=== PATIENT | male | born 1995 | race Two or more races ===

== ENCOUNTER 2017-11-20 02:47 | Inpatient (IN) | payer OTHER ==
[2017-11-20] MEDS ORDERED: SODIUM CHLORIDE 0.9% 1,000 ML IV ONE ×3 (02:58→07:33)
[2017-11-20] MEDS ORDERED: ONDANSETRON 4 MG/2 ML VIAL IVP STA ×2 (02:58→06:21)
[2017-11-20 03:16] LABS: BASOPHILS # (AUTO) 0.1 10^3/uL (0.0-0.1); BASOPHILS % (AUTO) 0.9 %; EOSINOPHILS % (AUTO) 0.2 %; LYMPHOCYTES # (AUTO) 1.7 10^3/uL (1.5-3.5); LYMPHOCYTES % (AUTO) 11.1 %; MEAN CORPUSCULAR HEMOGLOBIN 28.6 pg (27.0-31.0); MEAN CORPUSCULAR HGB CONC 32.2 g/dL (32.0-36.0); MEAN PLATELET VOLUME 7.9 fL (7.4-11.4); MONOCYTES % (AUTO) 6.3 %; NEUTROPHILS # (AUTO) 12.7 10^3/uL (1.5-6.6); NEUTROPHILS % (AUTO) 81.5 %; PLT - PLATELET COUNT 368 10^3/uL (130-450); RED CELL DISTRIBUTION WIDTH 19.4 % (12.0-15.0); WHITE BLOOD COUNT 15.6 x10^3/uL (4.8-10.8)
[2017-11-20 03:53] LABS: ALBUMIN 2.4 g/dL (3.2-5.5); ALBUMIN/GLOBULIN RATIO 0.7 (1.0-2.2); BILIRUBIN,TOTAL 1.3 mg/dL (0.2-1.0); CREATININE 0.7 mg/dL (0.6-1.2); TOTAL PROTEIN 5.9 g/dL (6.7-8.2)
--- NOTE | 2017-11-20 04:02 | ED Physician Documentation ---
PD HPI ABD PAIN - Stated complaint Stated Complaint: UPPER ABDOMINAL PAIN - Chief complaint Chief Complaint: Abd Pain - History obtained from History obtained from: Patient - History of Present Illness Timing - onset: Today Timing - details: Gradual onset, Still present Quality: Cramping, Aching, Sharp Location: Epigastric Improved by: Eating Associated symptoms: Nausea, Vomiting. No: Diarrhea, Hematochezia Similar symptoms before: Work up / diagnostics Recently seen: Clinic - Additional information Additional information: Patient is a 22 year old male with a recent diagnosis of crohn's disease who is presenting to the emergency department for abdominal pain. patient states that he recently has been on a course of prednisone and his crohn's symptoms had been improving. Patient states that yesterday he had some vomiting and epigastric pain. Review of Systems Ten Systems: 10 systems reviewed and negative Constitutional: denies: Fever, Chills GI: reports: Abdominal Pain, Nausea, Vomiting. denies: Constipation, Diarrhea : denies: Dysuria, Frequency PD PAST MEDICAL HISTORY - Past Medical History Past Medical History: Yes Cardiovascular: None Respiratory: None Neuro: None Endocrine/Autoimmune: None GI: Crohn's disease : None HEENT: None Psych: None Musculoskeletal: None Derm: None - Past Surgical History Past Surgical History: Yes General: Appendectomy - Present Medications Home Medications: Ambulatory Orders Medication Instructions Recorded Confirmed predniSONE [Prednisone] 10 mg PO DAILY 10/25/17 10/25/17 - Allergies Allergies/Adverse Reactions: Allergies Allergy/AdvReac Type Severity Reaction Status Date / Time No Known Drug Allergies Allergy Verified 11/20/17 02:54 - Social History Does the pt smoke?: No Smoking Status: Never smoker Does the pt drink ETOH?: Yes Does the pt have substance abuse?: No - Immunizations Immunizations are current?: Yes - POLST Patient has POLST: No PD ED PE NORMAL - Vitals Vital signs reviewed: Yes - General General: Alert and oriented X 3 - HEENT HEENT: Atraumatic - Neck Neck: Supple, no meningeal sign - Cardiac Cardiac: RRR, No murmur - Respiratory Respiratory: No respiratory distress, Clear bilaterally - Abdomen Abdomen: Soft - Derm Derm: Normal color, Warm and dry - Extremities Extremities: No deformity - Neuro Neuro: Alert and oriented X 3, No motor deficit, Normal speech Eye Opening: Spontaneous Motor: Obeys Commands Verbal: Oriented GCS Score: 15 - Psych Psych: Normal mood PD ED PE EXPANDED - General General: Alert - Abdomen Abdomen: Tender to palpation, Epigastric. No: Rebound, Guarding Results - Vitals Vitals: Vital Signs - 24 hr 11/20/17 11/20/17 11/20/17 02:51 04:30 06:36 Temperature 36.7 C Heart Rate 91 85 80 Respiratory 18 18 18 Rate Blood Pressure 138/98 H 136/91 H 138/100 H O2 Saturation 97 97 94 Oxygen O2 Source Room air - Labs Labs: Laboratory Tests 11/20/17 11/20/17 03:10 03:20 WBC 15.6 H RBC 4.20 L Hgb 12.0 L Hct 37.4 L MCV 89.0 MCH 28.6 MCHC 32.2 RDW 19.4 H Plt Count 368 MPV 7.9 Neut # 12.7 H Lymph # 1.7 [place] # 1.0 Eos # 0.0 Baso # 0.1 Absolute Nucleated RBC 0.00 Nucleated RBC % 0.0 Sodium 138 Potassium 4.5 Chloride 105 Carbon Dioxide 28 Anion Gap 5.0 L BUN 8 Creatinine 0.7 Estimated GFR (MDRD) 142 Glucose 119 H Calcium 8.0 L Total Bilirubin 1.3 H AST 21 ALT 17 Alkaline Phosphatase 122 H Total Protein 5.9 L Albumin 2.4 L Globulin 3.5 Albumin/Globulin Ratio 0.7 L Lipase 760 H - Rads (name of study) ct abd pelvis Radiology: Final report received (moderate to severe pancreatitis) PD MEDICAL DECISION MAKING - ED course Complexity details: reviewed old records, reviewed results, re-evaluated patient , considered differential, d/w patient ED course: Patient was seen and examined at bedside. IV access was gained and labs were drawn. patient was treated with a fluid bolus, and zofran. patient was treated with pepcid, maalox and viscous lidocaine with good relief. Patient's labs revealed a lipase of 760. CT was ordered as patient was not an alcoholic and had no history of pancreatitis. When patient returned from imaging he was started on another liter of fluid, additional zofran and fentanyl for pain. patient's findings were discussed with Dr Mayer who accepted the patient for admission. Departure - Departure Disposition: 66 [facility] DC/Xfer Clinical Impression: Pancreatitis Condition: Stable
[2017-11-20] MEDS ORDERED: IOPAMIDOL-300 100 ML VIAL ONE (04:23)
[2017-11-20] MEDS ORDERED: IOPAMIDOL-300 100 ML VIAL IVP ONE (04:47)
--- NOTE | 2017-11-20 05:05 | CT Preliminary Report ---
Exam: CT ABDOMEN/PELVIS W/ IMPRESSION: 1. Moderate to severe pancreatitis without aimna necrosis or other complication. 2. Fatty liver. 3. Patent common bile duct stent. [facility] SITE ID: [id number]
--- NOTE | 2017-11-20 05:09 | CT Report ---
EXAM: CT ABDOMEN AND PELVIS EXAM DATE: 11/20/2017 04:48 AM. CLINICAL HISTORY: Abdominal pain, elevated lipase. COMPARISONS: None. TECHNIQUE: Routine helical CT imaging was performed through the abdomen and pelvis. IV contrast: Yes. Enteric contrast: No. Reconstructions: Coronal and sagittal. In accordance with CT protocol optimization, one or more of the following dose reduction techniques w ere utilized for this exam: automated exposure control, adjustment of mA and/or KV based on patient s ize, or use of iterative reconstructive technique. FINDINGS: Lung Bases: Unremarkable. Liver: Fatty. No suspicious masses. Gallbladder/Bile Ducts: Common bile duct stent in place with pneumobilia, consistent with stent paten cy. Spleen: Unremarkable. Pancreas: Moderate to severe surrounding inflammatory changes without amina necrosis or organized col lection. No vascular thrombosis or pseudoaneurysm seen. Adrenal Glands: Unremarkable. Kidneys: Unremarkable. No suspicious masses or hydronephrosis. Peritoneal Cavity/Bowel: No bowel obstruction or definite inflammatory process. Mild free fluid is fe lt to be related to pancreatitis. Patient appears to be status post appendectomy. No bowel obstructio n. Pelvic Organs: Bladder and prostate appear unremarkable. Vasculature: No aneurysms or other significant abnormality. Bones: No significant abnormality. Other: None. IMPRESSION: 1. Moderate to severe pancreatitis without amina necrosis or other complication. 2. Fatty liver. 3. Patent common bile duct stent. [facility] Referring Provider Line: [phone] SITE ID: [id number]
[2017-11-20] MEDS ORDERED: fentaNYL 100 MCG/2 ML VIAL IVP STA (06:30)
[2017-11-20] MEDS ORDERED: SODIUM CHLORIDE FLUSH 0.9% 10 ML SYRINGE IVP PRN (07:24)
[2017-11-20] MEDS ORDERED: PROCHLORPERAZINE 10 MG/2 ML VIAL IVP PRN (07:24)
[2017-11-20] MEDS ORDERED: ONDANSETRON 4 MG/2 ML VIAL IVP PRN (07:24)
[2017-11-20] MEDS ORDERED: MORPHINE 2 MG/ML SYRINGE IVP PRN (07:24)
[2017-11-20] MEDS: PANTOPRAZOLE 40 MG VIAL IVP SCH (09:05)
[2017-11-20] MEDS: SODIUM CHLORIDE FLUSH 0.9% 10 ML SYRINGE IVP SCH ×2 (09:08→18:01)
[2017-11-20 09:30] LABS: CHOL/HDL RATIO 3.8 (<5.0); CHOLESTEROL 129 mg/dL; HDL CHOLESTEROL 34 mg/dL; LDL CHOLESTEROL,CALCULATED 82 mg/dL; LDL/HDL RATIO 2.4 (<3.6); VLDL CHOLESTEROL 13 mg/dL
[2017-11-20] MEDS: LACTATED RINGERS 1,000 ML IV SCH ×2 (10:22→20:17)
[2017-11-20] MEDS: POLYETHYLENE GLYCOL 3350 17 GM PACKET PO SCH (10:22)
[2017-11-20] MEDS: ACETAMINOPHEN 325 MG TABLET PO PRN ×2 (10:59→16:34)
[2017-11-20] MEDS: oxyCODONE 5 MG TABLET PO PRN ×2 (10:59→16:35)
--- NOTE | 2017-11-20 12:00 | HISTORY & PHYSICAL EXAMINATION ---
DATE OF SERVICE: 11/20/2017 Physician: Meli Mayer MD CHIEF COMPLAINT: Nausea, vomiting, and epigastric pain. 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 He has a complicated past medical history, which includes diagnosis of pancreatitis about a year ago, at which time he underwent appendectomy, and in the same setting, he underwent biliary stent placement. Subsequently he was diagnosed with Crohn disease about 4 months ago. The diagnosis was established based on CT scan with contrast and colonoscopy with biopsy. Since the diagnosis of Crohn's disease, the patient had been receiving Entyvio infusions, and he had been on prednisone. He stopped the prednisone 2 days prior to current presentation. He takes no other medication. He came to [facility] ER overnight on 11/19/2017 to 11/20/2017, complaining of a few days' history of unbearable epigastric pain. On the night of admission, he became nauseous and started to vomit greenish bilious gastric content. He denied fever, did not report diarrhea; did not see blood in his stool recently. He had mostly epigastric pain, which was stabbing , sharp, unbearable, did not radiate. He did not complain of lower quadrant abdominal pain. Reported weight loss of about 5 pounds during the past week. Upon presentation to the ER, the patient was hemodynamically stable and afebrile. Laboratories showed lipase at 760, white blood cell count was 15.6, hemoglobin was 12. Renal function tests were normal. Glucose was 119, calcium was 8, total bilirubin 1.3 , alkaline phosphatase 122. AST and ALT were normal. Patient underwent CT scan of the abdomen, which showed acute severely inflamed pancreas and patent biliary stent. In addition, fatty liver was described. There was no additional abnormality. PAST MEDICAL HISTORY 1. Crohn's disease. 2. History of pancreatitis status post biliary stent placement 3. Status post appendectomy. Please note that patient was seen at [facility] in [place], [place] , and we are in the process of obtaining the records. OUTPATIENT MEDICATIONS: None taken, 2 days ago finished prednisone. SOCIAL HISTORY: The patient does not smoke. 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 He drinks alcohol about once every 2 weeks.; does not report excessive alcohol intake. FAMILY HISTORY: Negative for bowel disease, autoimmune disorder. Basically, the patient reported no chronic medical illnesses in first-degree relatives. REVIEW OF SYSTEMS: Please see pertinent positives and pertinent negatives listed above at history of present illness. On complete 12-point review, there were no additional complaints. ER workup reviewed per electronic medical record. PHYSICAL EXAMINATION VITAL SIGNS: Temperature 36.7 Celsius, heart rate between 80 and 90, blood pressure 130/90, respiratory rate 18, oxygen saturation 97% on room air. GENERAL: Patient is a well-developed, young male who was curled up in a position secondary to abdominal pain. ABDOMEN: Bowel tones present. Epigastric tenderness. No organomegaly. Voluntary guarding but no rebound. LYMPH: No lymphedema. NEUROLOGIC: Alert, oriented, nonfocal. PSYCHIATRIC: Cooperative, pleasant to talk to. CARDIOVASCULAR: S1, S2. Regular. No pathologic murmur. RESPIRATORY: Clear to auscultation bilaterally without wheezes or crackles. SKIN: No jaundice. No pallor. MUSCULOSKELETAL: Atraumatic. No muscle tenderness. No joint swelling. ASSESSMENT AND PLAN 1. Acute pancreatitis, CT scan showing significant inflammation. 2. History of Crohn's disease and history of biliary stent placement with prior history of pancreatitis. I question whether this patient has pancreatitis secondary to Crohn's disease and possibly cholesterol or pigment stones that could be common etiology, and that could be something he would require a biliary stent placement for. Additional issues with his background would be medication-induced pancreatitis on medications that he receives for Crohn disease. At this point, he only receives Entyvio. I looked up profile for Entyvio, and it is a very rare complication for this medication to cause pancreatitis. On CT scan today, there was no biliary obstruction or no abnormality that would require specialist consultation or transfer. We could obtain phone consultation with cotton agent regarding the pancreatitis in the setting of Crohn disease and whether to continue Entyvio in the future. In any case, these issues could likely be coordinated over the phone. Therefore, the patient is getting admitted to [facility], although I told him that if anything changes, then he might need transfer to another facility. PLAN AND ORDERS 1. Patient is getting admitted as inpatient, will continue with aggressive IV hydration and supportive care for pancreatitis. I added ROSA ELENA panel to assess for autoimmune pancreatitis, ESR, CPR, lipid panel, triglycerides to the workup. We will also check an ultrasound to assess for gallbladder and possibly for biliary stones. 2. Deep venous thrombosis prophylaxis. 3. Gastrointestinal prophylaxis. 4. FULL CODE. Time spent in the care of this patient was 1 hour. TD: 11/20/2017 08:23 [email or web address]
--- NOTE | 2017-11-20 12:58 | Ultrasound Report ---
COMPLETE ABDOMINAL ULTRASOUND: 11/20/2017 CLINICAL INDICATION: Pancreatitis, biliary stent, question biliary obstruction. TECHNIQUE: Real-time scanning was performed with major account representative static images obtained. FINDINGS: The liver measures 16.5 cm. Hepatic echogenicity is increased, compatible with fatty infiltration. No focal parenchymal lesion or intrahepatic biliary dilatation is present. The common bile duct measures 3 mm above the level of the stent. The gallbladder demonstrates gas within the lumen, secondary to the biliary stent. No definite cholelithiasis is seen. The visualized pancreas appears unremarkable, but bowel gas does obscure segments. The kidneys are normal, with the right measuring 11.9 cm and left measuring 11.2 cm. The spleen measures 13 cm, and demonstrates normal echotexture. The abdominal aorta is normal in caliber. The inferior vena cava is unremarkable. A small volume of ascites is noted. IMPRESSION: PATENT BILIARY STENT. NO EVIDENCE OF CHOLELITHIASIS, BUT GAS IN THE GALLBLADDER LUMEN DOES LIMIT EVALUATION. SMALL VOLUME OF ASCITES. TD: 11/20/2017 12:58
[2017-11-20 16:34] LABS: CALCIUM 8.1 mg/dL (8.5-10.3); CREATININE 0.5 mg/dL (0.6-1.2)
[2017-11-20] MEDS: ENOXAPARIN 40 MG/0.4 ML SYRINGE SUBQ SCH (22:05)
[2017-11-21 05:42] LABS: BASOPHILS # (AUTO) 0.1 10^3/uL (0.0-0.1); BASOPHILS % (AUTO) 0.4 %; EOSINOPHILS # (AUTO) 0.1 10^3/uL (0.0-0.7); EOSINOPHILS % (AUTO) 0.7 %; LYMPHOCYTES # (AUTO) 1.4 10^3/uL (1.5-3.5); LYMPHOCYTES % (AUTO) 10.4 %; MEAN CORPUSCULAR HEMOGLOBIN 28.7 pg (27.0-31.0); MEAN CORPUSCULAR VOLUME 89.9 fL (80.0-94.0); MONOCYTES # (AUTO) 0.9 10^3/uL (0.0-1.0); MONOCYTES % (AUTO) 7.2 %; NEUTROPHILS # (AUTO) 10.6 10^3/uL (1.5-6.6); NEUTROPHILS % (AUTO) 81.3 %; PLT - PLATELET COUNT 304 10^3/uL (130-450); RED BLOOD COUNT 3.83 10^6/uL (4.70-6.10); RED CELL DISTRIBUTION WIDTH 18.9 % (12.0-15.0)
[2017-11-21 05:50] LABS: MAGNESIUM 1.4 mg/dL (1.7-2.8)
[2017-11-21 05:53] LABS: ALBUMIN/GLOBULIN RATIO 0.6 (1.0-2.2); BILIRUBIN,TOTAL 0.8 mg/dL (0.2-1.0); CALCIUM 7.8 mg/dL (8.5-10.3); CREATININE 0.6 mg/dL (0.6-1.2); TOTAL PROTEIN 5.1 g/dL (6.7-8.2)
[2017-11-21] MEDS: LACTATED RINGERS 1,000 ML IV SCH (06:23)
[2017-11-21] MEDS: PANTOPRAZOLE 40 MG VIAL IVP SCH (06:27)
[2017-11-21] MEDS: SODIUM CHLORIDE FLUSH 0.9% 10 ML SYRINGE IVP SCH ×2 (07:59→08:50)
--- NOTE | 2017-11-21 08:02 | DISCHARGE SUMMARY ---
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 A steroid taper was prescribed per Dr. Shelton [facility] GI team. Nausea and vomiting (R11.2)- resolved. Intractable abdominal pain (R10.9) - resolved. Crohn disease (K50.90)- chronic, stable. 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 It is changed yearly. - HPI History of Present Illness: Néstor Benites is a 22-year old male with a past transverse colitis, seizures, pancreatitis d/t too many Hydrocycut pills, Crohns disease, rectal bleeding, status post appendectomy, biliary stent with replacement, history of jaundice, and ongoing intermittent alcohol use. The patient came to the ED with after just finishing his prednisone taper 2-days ago with complaints of epigastric pain, nausea, vomiting green bile, and diarrhea. He denies fevers, chills, chest pain, shortness of breath or other complications. The patient has been getting Entyvio infusions for his Crohn's disease. He claims that he has lost about 5 pounds in the past week. Lab testing showed an elevated lipase at 760, elevated WBC count of 15.6, and a bilirubin of 1.3. Imaging including an abdominal CT showed acute severely inflamed pancreas, a fatty liver, mild ascities, and a patent biliary stent. He will be admitted to inpatient for IVFs , and pain control. He received care at [facility] in [place], [place], so we will obtain those records. - HOSPITAL COURSE Hospital Course: The patient slowly improved and was anxious to go home on the second day of stay. His Lipase was nearly normal and he was tolerating a regular diet. A call was made to Dr. Shelton, [facility] [place] GI who notes that the etiology of this pancreatitis is likely autoimmune and NOT caused by the stent in the CBD. Another steroid taper should be prescribed upon discharge. - ALLERGIES Allergies/Adverse Reactions: Allergies Allergy/AdvReac Type Severity Reaction Status Date / Time No Known Drug Allergies Allergy Verified 11/20/17 02:54 - MEDICATIONS Home Medications: Ambulatory Orders Medication Instructions Recorded Confirmed Ondansetron Odt [Zofran Odt] 4 mg PO PRN PRN 11/20/17 11/20/17 Prednisone 10 mg PO DAILY #42 tab.ds.pk 11/21/17 predniSONE [Prednisone] 5 mg PO DAILY #14 tablet 11/21/17 - PHYSICAL EXAM AT DISCHARGE General Appearance: positive: No acute distress, Alert Eyes Bilateral: positive: Normal inspection, PERRL ENT: positive: ENT inspection nml, Pharynx nml, No signs of dehydration Neck: positive: Nml inspection, Thyroid nml, No JVD, Trachea midline Respiratory: positive: Chest non-tender, No respiratory distress, Breath sounds nml Cardiovascular: positive: Regular rate & rhythm, No murmur, No gallop Peripheral Pulses: positive: 2+ Abdomen: positive: Non-tender, No organomegaly, Nml bowel sounds, No distention Back: positive: Nml inspection Skin: positive: Color nml, No rash, Warm, Dry Extremities: positive: Non-tender, Full ROM, Nml appearance Neurologic/Psychiatric: positive: Oriented x3, CN's nml (2-12), Motor nml, Sensation nml, Mood/affect nml Reflexes: Bicep (R): 4+, Bicep (L): 4+, Ankle (R): 4+, Ankle (L): 4+ - LABS Result Diagrams: 11/21/17 05:10 11/21/17 05:10 - DIAGNOSTIC IMAGING Diagnostic Imaging Results: Final report reviewed Diagnostic Imaging Results Comments: EXAM: US/ABDCOMP COMPLETE ABDOMINAL ULTRASOUND: 11/20/2017 CLINICAL INDICATION: Pancreatitis, biliary stent, question biliary obstruction. TECHNIQUE: Real-time scanning was performed with physician representative static images obtained. FINDINGS: The liver measures 16.5 cm. Hepatic echogenicity is increased, compatible with fatty infiltration. No focal parenchymal lesion or intrahepatic biliary dilatation is present. The common bile duct measures 3 mm above the level of the stent. The gallbladder demonstrates gas within the lumen, secondary to the biliary stent. No definite cholelithiasis is seen. The visualized pancreas appears unremarkable, but bowel gas does obscure segments. The kidneys are normal, with the right measuring 11.9 cm and left measuring 11.2 cm. The spleen measures 13 cm, and demonstrates normal echotexture. The abdominal aorta is normal in caliber. The inferior vena cava is unremarkable. A small volume of ascites is noted. IMPRESSION: PATENT BILIARY STENT. NO EVIDENCE OF CHOLELITHIASIS, BUT GAS IN THE GALLBLADDER LUMEN DOES LIMIT EVALUATION. SMALL VOLUME OF ASCITES. EXAM: CT ABDOMEN AND PELVIS EXAM DATE: 11/20/2017 04:48 AM. CLINICAL HISTORY: Abdominal pain, elevated lipase. COMPARISONS: None. TECHNIQUE: Routine helical CT imaging was performed through the abdomen and pelvis. IV contrast: Yes. Enteric contrast: No. Reconstructions: Coronal and sagittal. In accordance with CT protocol optimization, one or more of the following dose reduction techniques were utilized for this exam: automated exposure control, adjustment of mA and/or KV based on patient size, or use of iterative reconstructive technique. FINDINGS: Lung Bases: Unremarkable. Liver: Fatty. No suspicious masses. Gallbladder/Bile Ducts: Common bile duct stent in place with pneumobilia, consistent with stent patency. Spleen: Unremarkable. Pancreas: Moderate to severe surrounding inflammatory changes without amina necrosis or organized collection. No vascular thrombosis or pseudoaneurysm seen. Adrenal Glands: Unremarkable. Kidneys: Unremarkable. No suspicious masses or hydronephrosis. Peritoneal Cavity/Bowel: No bowel obstruction or definite inflammatory process. Mild free fluid is felt to be related to pancreatitis. Patient appears to be status post appendectomy. No bowel obstruction. Pelvic Organs: Bladder and prostate appear unremarkable. Vasculature: No aneurysms or other significant abnormality. Bones: No significant abnormality. Other: None. IMPRESSION: 1. Moderate to severe pancreatitis without amina necrosis or other complication. 2. Fatty liver. 3. Patent common bile duct stent. - FOLLOW UP Follow Up: Disposition: 01 Home, Self Care Condition: Good Prescriptions: Prednisone 10 mg PO DAILY #42 tab.ds.pk predniSONE [Prednisone] 5 mg PO DAILY #14 tablet Diet: Regular Activity Restrictions: No Restrictions Shower Restrictions: No Driving Restrictions: No Weight Bearing: Full Weight Additional Instructions or Follow Up instructions: You were treated for acute pancreatitits, using IV fluids and bowel rest. I spoke with Dr. Shelton due to concern for the biliary stent as the cause of your pancreatitits. He was certain that this was an autoimmune pancreatitis and did NOT think that the stent is causing any problems. The reason that you have the stent is because you have something called primary sclerosing cholangitis, which causes stenosis (narrowing) of the common bile duct. Dr. Shelton recommends a steroid taper; take 40mg daily by mouth for one week, then 35mg, then 30mg, then 25mg, etc. Decrease the amount each week until you are on just 5mg. He also thinks you should stay on the Entyvio as prescribed earlier for your Crohns disease. Please see your PCP within one week. Continue to advance your diet slowly, and rest when you are tired. - TIME SPENT Time Spent in Discharge (Minutes): 45
[2017-11-21 08:43] LABS: HB2 TOTAL 11.8 g/dL; HEMOGLOBIN A1C 0.31 g/dL; HEMOGLOBIN A1C % 4.6 % (4.6-6.2)
[2017-11-21] MEDS: ENOXAPARIN 40 MG/0.4 ML SYRINGE SUBQ SCH (08:50)
[2017-11-21] MEDS: POLYETHYLENE GLYCOL 3350 17 GM PACKET PO SCH (08:50)
[2017-11-21] MEDS ORDERED: MAGNESIUM OXIDE 400 MG TABLET PO ONE (12:21)
[2017-11-21] MEDS ORDERED: MAGNESIUM SULFATE 2 GRAM 2 GM/50 ML BAG IV ONE (12:22)
[2017-11-21] MEDS ORDERED: predniSONE 20 MG TABLET PO ONE (12:22)
[2017-11-21 14:22] VITALS: BP 119/78
[2017-11-22 13:42] LABS: ANA SCREEN NEGATIVE (NEGATIVE)
== END 2017-11-21 14:54 | disposition home or self-care (01) | DRG 439 ==
LOC: ED 02:47 → MS2 07:24
PROVIDERS: ADMIT Internal Medicine; ATTEND Nurse Practitioner
DX: K85.80 Other acute pancreatitis without necrosis or infection (principal); K50.90 Crohn's disease, unspecified, without complications; K83.0 Cholangitis; R18.8 Other ascites; Z79.52 Long term (current) use of systemic steroids; K76.0 Fatty (change of) liver, not elsewhere classified; Z96.89 Presence of other specified functional implants
CPT/HCPCS: 36415; 74177; 76700; 80048; 80053; 80061; 82150; 82977; 83036; 83690; 83721; 83735; 84443; 84478; 85025; 85651; 86038; 86140; 96361; 96374; 96375; 96376; 99283; 99284

== ENCOUNTER 2020-07-07 11:13 | Emergency (ER) | payer OTHER ==
[2020-07-07] MEDS ORDERED: ONDANSETRON 4 MG/2 ML VIAL IVP STA (11:51)
[2020-07-07] MEDS ORDERED: SODIUM CHLORIDE 0.9% 1,000 ML IV STA (11:51)
[2020-07-07] MEDS ORDERED: HYDROmorphone 1 MG/ML CARPUJECT IVP STA (11:51)
--- NOTE | 2020-07-07 11:56 | ED Physician Documentation ---
History of Present Illness - Stated complaint Stated Complaint: ABDOMINAL PX/N/V - Chief complaint Chief Complaint: Abd Pain - History obtained from History obtained from: Patient - History of Present Illness Timing: How many days ago (3) - Additonal information Additional information: 24-year-old male presents emergency department with 3 days of generalized abd ominal pain, nausea vomiting fevers and now bloody stools. He reports that he does have a history of Crohn's disease. He had been started on Entyvio about 2 years ago. He was getting the injections every 2 months. However he began to feel better and stopped having abdominal pain or bloody stools and has not received an injection since January. no chest pain, dyspnea, sob, cough. no dysuria soc: denies tobacco, etoh, nsaids Past surgical history includes previous appendectomy. Review of Systems Constitutional: reports: Fever, Chills Eyes: reports: Reviewed and negative Nose: reports: Reviewed and negative Throat: reports: Reviewed and negative Cardiac: reports: Reviewed and negative Respiratory: reports: Reviewed and negative GI: reports: Abdominal Pain, Nausea, Vomiting, Bloody / black stool : reports: Reviewed and negative Skin: reports: Reviewed and negative Musculoskeletal: reports: Reviewed and negative PD PAST MEDICAL HISTORY - Past Medical History Cardiovascular: None Respiratory: None Endocrine/Autoimmune: Other GI: Crohn's disease : None HEENT: None Psych: None Musculoskeletal: None Derm: None - Past Surgical History Past Surgical History: Yes General: Appendectomy - Present Medications Home Medications: Ambulatory Orders Medication Instructions Recorded Confirmed No Known Home Medications 03/28/18 07/07/20 - Allergies Allergies/Adverse Reactions: Allergies Allergy/AdvReac Type Severity Reaction Status Date / Time No Known Drug Allergies Allergy Verified 07/07/20 11:22 - Social History Does the pt smoke?: No Smoking Status: Never smoker Does the pt drink ETOH?: Yes Does the pt have substance abuse?: No - Immunizations Immunizations are current?: Yes - POLST Patient has POLST: No PD ED PE EXPANDED - General General: Alert, No acute distress, Well developed/nourished - Neck Neck: Supple w/out meningeal sx. No: Adenopathy - Cardiac Cardiac: Regular Rate, Regular Rhythm, Radial strong equal, Pedal strong equal, Cap refill < 2 sec - Respiratory Respiratory: Clear to ausultation crystal. No: Distress, Labored - Abdomen Abdomen: Generalized/diffuse (generalized abdominal tenderness. Nonfocal. No guarding or rebound. No CVA tenderness.) - Derm Derm: Normal color. No: Rash, Petecchiae, Purpura - Extremities Extremities: Normal. No: Deformity, Tenderness - Neuro Neuro: Alert and Oriented X 3, CNII-XII intact - GCS Eye Opening: Spontaneous Motor: Obeys Commands Verbal: Oriented Total: 15 Results - Vitals Vitals: Vital Signs - 24 hr 07/07/20 07/07/20 11:19 12:08 Temperature 36.8 C Heart Rate 96 87 Respiratory 17 16 Rate Blood Pressure 130/88 H 141/90 H O2 Saturation 97 100 Oxygen O2 Source Room air - Labs Labs: Laboratory Tests 07/07/20 07/07/20 07/07/20 11:55 11:55 12:00 WBC 15.5 H RBC 5.27 Hgb 15.0 Hct 45.1 MCV 85.6 MCH 28.5 MCHC 33.3 RDW 12.3 Plt Count 295 MPV 10.7 Neut # (Auto) 12.6 H Lymph # (Auto) 1.2 L [place] # (Auto) 1.4 H Eos # (Auto) 0.2 Baso # (Auto) 0.1 Absolute Nucleated RBC 0.00 Nucleated RBC % 0.0 Sodium 138 Potassium 4.2 Chloride 104 Carbon Dioxide 24 Anion Gap 10.0 BUN 12 Creatinine 0.9 Estimated GFR (MDRD) 105 Glucose 117 H Calcium 9.3 Total Bilirubin 0.7 AST 16 ALT 13 Alkaline Phosphatase 135 H Total Protein 8.3 H Albumin 4.3 Globulin 4.0 Albumin/Globulin Ratio 1.1 Lipase 30 Urine Color DARK YELLOW Urine Clarity CLEAR Urine pH 6.0 Ur Specific [place] 1.025 Urine Protein TRACE Urine Glucose (UA) NEGATIVE Urine Ketones TRACE Urine Occult Blood TRACE-INTA Urine Nitrite NEGATIVE Urine Bilirubin NEGATIVE Urine Urobilinogen 1 (NORMAL) Ur Leukocyte Esterase NEGATIVE Ur Microscopic Review NOT INDICATED Urine Culture Comments NOT INDICATED - Rads (name of study) CT abd Radiology: Final report received (Diffuse colonic appearance of thickening and inflammatory changes most prominent within the ascending and transverse colon. Given patient age overall appearance is suggestive of colitis secondary to inflammatory bowel disease) PD MEDICAL DECISION MAKING - ED course Complexity details: reviewed results ED course: 24-year-old male who has a history of Crohn's disorder previously well managed on Entyvio until he stopped taking injections in January of this year presents with 3 days of generalized abdominal pain bloody stools nausea vomiting and low-grade fever. Patient is noted to have a moderate leukocytosis with white count of 15,000. His renal and liver function is preserved. No findings of urinary tract infection. CT scan of the abdomen was completed and it is consistent with inflammatory bowel disease specifically thickening and inflammatory changes within the ascending and transverse colon. This gentleman is well-appearing with normal vitals and no fever here. Exam and history is most consistent with a Crohn's flare. He will be advised to follow- up very closely with [facility] in order to be resumed on his Entyvio injections. To treat the acute flare we will start him on a prednisone taper. I have handwritten a prescription in which she will take 40 mg daily for 7 days followed by 30 mg daily for a week, then 20 mg daily for another week, 10 mg daily for 1 more week followed by 1/2 tablet for 6 days. Emergent and worrisome return precautions including worsening abdominal pain failure of rectal bleeding to resolve and fevers were discussed. Departure - Departure Disposition: Home, Self Care Clinical Impression: Acute Crohn's disease Qualifiers: Digestive disease complication type: with rectal bleeding Qualified Code(s): K50.911 - Crohn's disease, unspecified, with rectal bleeding Condition: Stable Record reviewed to determine appropriate education?: Yes Instructions: LINO Hernandezam Bowel Disease Crohn Comments: I hope that you are feeling better soon. As discussed your exam and lab and CT findings are most consistent with a Crohn's flare. In order to treat this I have started you on the prednisone taper as we discussed. It is very important that you follow-up with your primary care provider or [facility] as soon as possible within the week. You should be referred to get back on your biologic or Entyvio. If at any point you develop worsening pain, have higher fevers, the rectal bleeding fails to resolve or worsens please return immediately to the emergency department
[2020-07-07] MEDS ORDERED: IOVERSOL 320 100 ML VIAL IVP ONE ×2 (12:05→12:58)
[2020-07-07 12:14] LABS: BASOPHILS # (AUTO) 0.1 10^3/uL (0.0-0.1); BASOPHILS % (AUTO) 0.5 %; EOSINOPHILS # (AUTO) 0.2 10^3/uL (0.0-0.7); LYMPHOCYTES # (AUTO) 1.2 10^3/uL (1.5-3.5); LYMPHOCYTES % (AUTO) 7.6 %; MEAN CORPUSCULAR HEMOGLOBIN 28.5 pg (27.0-31.0); MEAN CORPUSCULAR HGB CONC 33.3 g/dL (32.0-36.0); MEAN CORPUSCULAR VOLUME 85.6 fL (80.0-94.0); MEAN PLATELET VOLUME 10.7 fL (7.4-11.4); MONOCYTES # (AUTO) 1.4 10^3/uL (0.0-1.0); MONOCYTES % (AUTO) 9.2 %; NEUTROPHILS # (AUTO) 12.6 10^3/uL (1.5-6.6); NEUTROPHILS % (AUTO) 81.3 %; PLT - PLATELET COUNT 295 10^3/uL (130-450); RED BLOOD COUNT 5.27 10^6/uL (4.70-6.10); RED CELL DISTRIBUTION WIDTH 12.3 % (12.0-15.0); WHITE BLOOD COUNT 15.5 x10^3/uL (4.8-10.8)
[2020-07-07 12:15] LABS: GLUCOSE, URINE (UA) NEGATIVE (NEGATIVE); KETONES,URINE (UA) TRACE mg/dL (NEGATIVE); LEUKOCYTE ESTERASE, URINE NEGATIVE (NEGATIVE); NITRITE,URINE NEGATIVE (NEGATIVE); OCCULT BLOOD,URINE TRACE-INTA (NEGATIVE); PROTEIN,URINE TRACE mg/dL (NEGATIVE); UROBILINOGEN,URINE 1 (NORMAL) E.U./dL (NORMAL)
[2020-07-07 12:18] LABS: CLARITY,URINE CLEAR (CLEAR)
[2020-07-07 12:22] LABS: BILIRUBIN,URINE NEGATIVE (NEGATIVE); ICTOTEST,URINE NEGATIVE
[2020-07-07 12:32] LABS: ALBUMIN 4.3 g/dL (3.2-5.5); ALBUMIN/GLOBULIN RATIO 1.1 (1.0-2.2); BILIRUBIN,TOTAL 0.7 mg/dL (0.2-1.0); CALCIUM 9.3 mg/dL (8.5-10.3); CREATININE 0.9 mg/dL (0.6-1.2); TOTAL PROTEIN 8.3 g/dL (6.7-8.2)
--- NOTE | 2020-07-07 13:05 | CT Report ---
PROCEDURE: Abdomen/Pelvis W INDICATIONS: hx of chrones; rectal bleeding CONTRAST: IV CONTRAST: Optiray 320 ml: 100 PO CONTRAST: *NO PO CONTRAST TECHNIQUE: After the administration of IV contrast, 5 mm thick sections acquired from the diaphragms to the symp hysis. 5 mm thick coronal and sagittal reformats were acquired. For radiation dose reduction, the f ollowing was used: automated exposure control, adjustment of mA and/or kV according to patient size. COMPARISON: CT abdomen pelvis 11/20/2017 FINDINGS: Image quality: Excellent. ABDOMEN: Lung bases: Lung bases are clear. Heart size is normal. Solid organs: Liver and spleen are normal in size and enhancement. Gallbladder is unremarkable Bebeto iary system is non dilated. Pancreas enhances normally. No adrenal nodules. Kidneys demonstrate no rmal size and enhancement, without hydronephrosis. Peritoneum and bowel: Bowel loops demonstrate a diffuse appearance of thickening within the descendi ng, transverse and to a lesser degree descending colon. Most prominent area of thickening and inflamm atory changes noted within the ascending and transverse colon. Pericolonic inflammatory changes prese nt. No free air, free fluid or abscess is identified. No diverticula are identified. No inflammation of the terminal ileum. Nodes and vessels: No retroperitoneal or mesenteric adenopathy by size criteria. Aorta and inferior vena cava are normal in size. Miscellaneous: No ventral hernias. PELVIS: Genitourinary: Bladder wall thickness is normal. Miscellaneous: No inguinal hernias or adenopathy. Bones: No suspicious bony lesions. No vertebral body compression fractures. IMPRESSION: 1. Diffuse colonic appearance of thickening and inflammatory change most prominent within the ascendi ng and transverse colon. Given patient age, overall appearance is suggestive of colitis secondary to inflammatory bowel disease. Reviewed by: Karen Millan MD on 07/07/2020 1:04 PM PST Approved by: Karen Millan MD on 07/07/2020 1:04 PM PST Station ID: [id number]
[2020-07-07 13:51] VITALS: BP 129/72
== END 2020-07-07 13:49 | disposition home or self-care (01) ==
LOC: ED 11:13
DX: K50.111 Crohn's disease of large intestine with rectal bleeding (principal)
CPT/HCPCS: 36415; 74177; 80053; 81003; 83690; 85025; 96374; 99284; J1170; Q9967; 81001; 87086

== ENCOUNTER 2020-07-24 09:57 | Inpatient (IN) | payer OTHER ==
--- NOTE | 2020-07-24 10:18 | ED Physician Documentation ---
PD HPI ABD PAIN - Stated complaint Stated Complaint: ABD PX, BLOOD IN STOOL,LIGHTHEADED - History obtained from History obtained from: Patient - History of Present Illness Timing - onset: Last night Timing - duration: Hours Timing - details: Abrupt onset, Still present Quality: Cramping, Pain Location: All over / everywhere Improved by: Laying still, Vomiting Worsened by: Eating Associated symptoms: Nausea, Vomiting, Diarrhea Similar symptoms before: Diagnosis (exacerbation of chrons disease) Recently seen: Admitted - Additional information Additional information: 24 y/o male with a history of crohns colitis has stopped his biologic while in remission and he has had an exacerbation of his symptoms and required admission for 4 days. He had some improvement with steroid and got his 1st dose of Entyvio in the hospital yesterday. He was feeling much improved yesterday and went home with symptoms of diarrhea only and subsequently developed vomiting with dry heaves. He presents this morning with bloody diarrhea, abdominal pain, lethargy, vomiting and he is not getting relief. Review of Systems Constitutional: reports: Chills, Fatigue, Sweats. denies: Fever Eyes: denies: Decreased vision Ears: denies: Ear pain Nose: denies: Rhinorrhea / runny nose, Congestion Throat: denies: Sore throat Cardiac: denies: Chest pain / pressure, Palpitations, Pedal edema, Calf pain Respiratory: denies: Dyspnea, Cough GI: reports: Abdominal Pain, Nausea, Vomiting, Diarrhea : denies: Dysuria, Frequency Skin: denies: Rash Musculoskeletal: denies: Neck pain, Back pain, Extremity pain Neurologic: reports: Generalized weakness. denies: Focal weakness, Numbness PD PAST MEDICAL HISTORY - Past Medical History Cardiovascular: None Respiratory: None Neuro: None Endocrine/Autoimmune: None, Other GI: Crohn's disease [place] MAORI: None : None HEENT: None Psych: None Musculoskeletal: None Derm: None - Past Surgical History Past Surgical History: Yes General: Appendectomy - Present Medications Home Medications: Ambulatory Orders Medication Instructions Recorded Confirmed Ondansetron Odt [Zofran Odt] 4 mg TL Q6H PRN 07/24/20 07/24/20 - Allergies Allergies/Adverse Reactions: Allergies Allergy/AdvReac Type Severity Reaction Status Date / Time No Known Drug Allergies Allergy Verified 07/24/20 10:16 - Social History Does the pt smoke?: No Smoking Status: Never smoker Does the pt drink ETOH?: Yes Does the pt have substance abuse?: No - Immunizations Immunizations are current?: Yes - POLST Patient has POLST: No POLST Status: Full Code PD ED PE NORMAL - Vitals Vital signs reviewed: Yes (tachy ) - General General: Alert and oriented X 3, Well developed/nourished, Other (laying on side appears withdrawn and in pain ) - HEENT HEENT: Atraumatic, PERRL, EOMI, Other (dry mucous membranes ) - Neck Neck: Supple, no meningeal sign, No bony TTP - Cardiac Cardiac: No murmur, Other (tachycardic ) - Respiratory Respiratory: No respiratory distress, Clear bilaterally - Abdomen Abdomen: Soft, Other (mild general tenderness without garding ) - Back Back: No CVA TTP, No spinal TTP - Derm Derm: Normal color, Warm and dry, No rash - Extremities Extremities: No deformity, No edema - Neuro Neuro: Alert and oriented X 3, 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, No motor deficit, No sensory deficit, Normal speech Eye Opening: Spontaneous Motor: Obeys Commands Verbal: Oriented GCS Score: 15 - Psych Psych: Other (mood is withdrawn and affect is flat ) Results - Vitals Vitals: Vital Signs - 24 hr 07/24/20 07/24/20 07/24/20 10:00 10:53 12:56 Temperature 36.2 C L Heart Rate 112 H 118 H 114 H Respiratory 17 16 16 Rate Blood Pressure 119/76 103/67 85/53 L O2 Saturation 100 95 96 07/24/20 07/24/20 13:44 14:52 Temperature Heart Rate 106 H 97 Respiratory 16 16 Rate Blood Pressure 83/55 L 112/65 O2 Saturation 99 95 Oxygen O2 Source Room air - Labs Labs: Laboratory Tests 07/24/20 07/24/20 14:45 14:45 WBC 11.8 H RBC 3.80 L Hgb 10.6 L Hct 32.2 L MCV 84.7 MCH 27.9 MCHC 32.9 RDW 14.8 Plt Count 351 MPV 10.2 Neut # (Auto) Not Reportable Lymph # (Auto) Not Reportable [place] # (Auto) Not Reportable Eos # (Auto) Not Reportable Baso # (Auto) Not Reportable Absolute Nucleated RBC Not Reportable Total Counted 100 Band Neuts % (Manual) 28 H Reactive Lymphs % (Man) 4 Abnorm Lymph % (Manual) 0 Metamyelocytes % 1 H Nucleated RBC % Not Reportable Neutrophils # (Manual) 8.3 H Lymphocytes # (Manual) 1.9 Monocytes # (Manual) 1.5 H Eosinophils # (Manual) 0.0 Basophils # (Manual) 0.0 Differential Comment MANUAL DIFFERENTIAL Platelet Estimate NORMAL (130-450,000) Platelet Morphology NORMAL APPEARANCE RBC Morph Micro Appear NORMAL APPEARANCE Sodium 137 Potassium 3.5 Chloride 97 L Carbon Dioxide 27 Anion Gap 13.0 BUN 13 Creatinine 0.9 Estimated GFR (MDRD) 105 Glucose 119 H Calcium 7.4 L Total Bilirubin 1.4 H AST 49 H ALT 79 H Alkaline Phosphatase 99 Total Protein 5.8 L Albumin 2.2 L Globulin 3.6 Albumin/Globulin Ratio 0.6 L Lipase 23 Procedures - IVC sono (time) 1015 Bedside IVC sono: IVC measures (cm) (0.71), IVC collapsed c insp (cm) (complete), Dehydration (est 2 liter deficit) PD MEDICAL DECISION MAKING - ED course Complexity details: reviewed old records, reviewed results, re-evaluated patient, considered differential, d/w patient ED course: 24 y/o male with exacerbation of crohns just released yesterday is already dehydrated enough to require IV hydration and he was a difficult IV start requiring us to consult the anesthesiologist. He is nearly 3 liters deficit and appears fatigued/washed out even after one liter is in. We have asked the hospitalist to admit the patient for further hydration and any other treatment that may help as it will take another 2 weeks until the 2nd dose of Entyvio before a good response is achieved. Departure - Departure Disposition: [facility] DC/Xfer Clinical Impression: Dehydration Exacerbation of Crohn's disease Qualifiers: Digestive disease complication type: without complication Qualified Code(s): K50.90 - Crohn's disease, unspecified, without complications
[2020-07-24] MEDS ORDERED: SODIUM CHLORIDE 0.9% 1,000 ML IV STA ×2 (10:41→13:41)
[2020-07-24 14:50] LABS: BASOPHILS % (AUTO) 0.8 %; EOSINOPHILS % (AUTO) 0.2 %; HGB - HEMOGLOBIN 10.6 g/dL (14.0-18.0); LYMPHOCYTES % (AUTO) 14.6 %; MEAN CORPUSCULAR HEMOGLOBIN 27.9 pg (27.0-31.0); MEAN CORPUSCULAR HGB CONC 32.9 g/dL (32.0-36.0); MEAN CORPUSCULAR VOLUME 84.7 fL (80.0-94.0); MEAN PLATELET VOLUME 10.2 fL (7.4-11.4); MONOCYTES % (AUTO) 9.7 %; NEUTROPHILS % (AUTO) 71.9 %; PLT - PLATELET COUNT 351 10^3/uL (130-450); RED CELL DISTRIBUTION WIDTH 14.8 % (12.0-15.0); WHITE BLOOD COUNT 11.8 x10^3/uL (4.8-10.8)
[2020-07-24 14:53] LABS: ABNORMAL LYMPHS % (MANUAL) 0 %
[2020-07-24 15:04] LABS: ALBUMIN 2.2 g/dL (3.2-5.5); ALBUMIN/GLOBULIN RATIO 0.6 (1.0-2.2); BILIRUBIN,TOTAL 1.4 mg/dL (0.2-1.0); CALCIUM 7.4 mg/dL (8.5-10.3); CREATININE 0.9 mg/dL (0.6-1.2); TOTAL PROTEIN 5.8 g/dL (6.7-8.2)
[2020-07-24] MEDS ORDERED: ONDANSETRON 4 MG/2 ML VIAL IVP PRN (15:19)
[2020-07-24] MEDS ORDERED: ONDANSETRON ODT 4 MG TABLET TL PRN (15:19)
[2020-07-24 15:28] LABS: BAND NEUTROPHILS % (MANUAL) 28 %; LYMPHOCYTES # (MANUAL) 1.9 10^3/uL (1.5-3.5); LYMPHOCYTES % (MANUAL) 12 %; METAMYELOCYTES % (MANUAL) 1 %; MONOCYTES # (MANUAL) 1.5 10^3/uL (0.0-1.0)
[2020-07-24 15:29] LABS: DIFFERENTIAL COMMENT MANUAL DIFFERENTIAL; PLATELET ESTIMATE, MANUAL NORMAL (130-450,000) (NORMAL); PLATELET MORPHOLOGY NORMAL APPEARANCE (NORMAL); RBC MORPHOLOGY (MULTIPLE) NORMAL APPEARANCE (NORMAL)
--- NOTE | 2020-07-24 15:30 | HISTORY & PHYSICAL EXAMINATION ---
Chief Complaint - Chief Complaint Chief Complaint: Abdominal pain & bloody diarrhea History of Present Illness - Admitted From Admitted From:: ED - History Obtained From Records Reviewed: [facility] History obtained from: Patient Exam Limitations: None - History of Present Illness HPI Comment/Other: This is a 24 y/o m patient with a history of Crohn disease who presented today with bloody diarrhea and abdominal pain that has been going on for the last 3 weeks. He was discharged yesterday morning after being an inpatient here for 4 days for a Crohn's exacerbation. He says that he had an episode of bloody diarrhea and dry heaves after he got to work today. He says that he felt tachycardic, lightheaded, and "like I was about to ". The blood in the diarrhea was darker than usual. He rates the intermittent, non-radiating LLQ/periumbilical pain a 6/10 at maximal intensity. There are no aggravating/alleviating factors. He received his first infusion of Entyvio yesterday morning after being non- compliant for the last 6 months. He was diagnosed with Crohn's 2.5 years ago. 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 Mom not known. Siblings 6 (3+3), healthy. 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 Drinks 1-2 weekends a month. Vapes but no cigarettes. No recreational substances. From [facility]. Has a daughter there from a former girlfriend. Not . - Substance History Use: Uses substance without health or social issues: Alcohol, Other (Vape) Abuse: Recurrent use of substance despite neg consequences: NONE Dependence: Experiences withdrawal or developed tolerances: NONE Tobacco Details: E-Cigarettes - POLST Patient has POLST: No POLST Status: Full Code Meds/Allgy - Home Medications Home Medications: Ambulatory Orders Medication Instructions Recorded Confirmed Ondansetron Odt [Zofran Odt] 4 mg TL Q6H PRN 07/24/20 07/24/20 - Allergies Allergies/Adverse Reactions: Allergies Allergy/AdvReac Type Severity Reaction Status Date / Time No Known Drug Allergies Allergy Verified 07/24/20 10:16 Review of Systems - Constitutional Constitutional: reports: Fatigue, Fever, Chills, Malaise, Weakness, Diaphoresis - Eyes Eyes: denies: Pain - Ears, Nose & Throat Ears, Nose & Throat: denies: Ear pain, Hearing loss, Tinnitus, Nasal pain, Nasal discharge, Nasal congestion, Sore throat - Cardiovascular Cariovascular: reports: Palpitations, Lightheadedness. denies: Chest pain, Syncope, Exertional dyspnea - Respiratory Respiratory: denies: Cough, Hemoptysis - Gastrointestinal Gastrointestinal: reports: Abdominal pain (LLQ, periumbilical), Diarrhea, Bloody stools, Nausea, Vomiting. denies: Abdominal distention, Constipation, Rectal bleeding, Coffee grounds emesis, Poor appetite - Genitourinary Genitourinary: denies: Dysuria, Urgency, Hematuria, Incontinence - Musculoskeletal Musculoskeletal: reports: Muscle aches - Integumentary Integumentary: denies: Rash, Dryness - Neurological Neurological: denies: General weakness, Focal weakness, Headache, Dizziness, Numbness - Psychiatric Psychiatric: denies: Depression, Anxiety, Suicidal, Hallucinations - Endocrine Endocrine: denies: Polyuria, Intolerance to cold, Intolerance to heat - Hematologic/Lymphatic Hematologic/Lymphatic: denies: Bruising, Lymphadenopathy Prior Level of Functionality: Can perform regular ADL. Exam - Vital Signs Reviewed Vital Signs: Yes Vital Signs: Vital Signs x48h Temp Pulse Resp BP Pulse Ox 07/24/20 14:52 97 16 112/65 95 07/24/20 13:44 106 H 16 83/55 L 99 07/24/20 12:56 114 H 16 85/53 L 96 07/24/20 10:53 118 H 16 103/67 95 07/24/20 10:00 36.2 C L 112 H 17 119/76 100 - Physical Exam General Appearance: positive: No acute distress, Alert, Lethargic (He's fatigued) Eyes Bilateral: positive: Normal inspection, PERRL, No lid inflammation, Conjunctivae nml, No scleral icterus ENT: positive: Pharynx nml. negative: Purulent nasal drainage, Pharyngeal erythema Neck: positive: Nml inspection. negative: Lymphadenopathy (R), Lymphadenopathy (L) Respiratory: positive: Chest non-tender, No respiratory distress, Breath sounds nml Cardiovascular: positive: No murmur, No gallop, Tachycardia. negative: Irregularly irregular Abdomen: positive: No organomegaly, Nml bowel sounds, No distention, Tenderness (periumbilical, LLQ). negative: Guarding, Rebound, Hepatomegaly, Splenomegaly Back: positive: Nml inspection Skin: positive: Color nml, No rash, Warm, Dry. negative: Cyanosis, Diaphoresis, Pallor Extremities: positive: Full ROM, Nml appearance, No pedal edema, Other. negative: Calf tenderness Neurologic/Psychiatric: positive: Oriented x3, Motor nml, Sensation nml, Mood/affect nml Conclusion/Plan - Problem List (1) Hypotension Conclusion/Plan: Probably caused by fluid loss due to severe episodes of bloody diarrhea that are brought by Crohn's exacerbation. Plan: Stabilization of Crohn's exacerbation and fluid replenishment. Qualifiers: Hypotension type: hypotension due to hypovolemia Qualified Code(s): I95.89 - Other hypotension; E86.1 - Hypovolemia (2) Tachycardia Conclusion/Plan: Probably due to hypotension caused by the fluid loss of current Crohn's exacerbation. Plan: Stabilization of Crohn's exacerbation, BP management, fluid maintenance. (3) Dehydration Conclusion/Plan: Secondary to fluid loss through diarrhea. Plan: Fluid maintenance. (4) Exacerbation of Crohn's disease Conclusion/Plan: He was discharged yesterday after being an inpatient here for 5 days for Crohn's exacerbation. These exacerbations are likely brought on by noncompliance with medication. The last Entyvio infusion he had prior to yesterday after being discharged was in December 2019. His Chrohn's was being managed by BIANCA Ivory with [facility]. He was C. difficile and E. coli negative. Plan: Give IV methylprednisolone for inflammation. He will receive his next Entyvio infusion in 2 weeks. Qualifiers: Digestive disease complication type: without complication Qualified Code(s): K50.90 - Crohn's disease, unspecified, without complications (5) Bloody diarrhea Conclusion/Plan: Plan: Begin IV methylprednisolone , bowel rest, bland/low-fiber/low-fat diet, fluid maintenance. - Lab Results Fish Bones: 07/25/20 05:15 07/25/20 05:15 Core Measures - Anticipated LOS I expect patient to be DC'd or transferred within 96 hours.: Yes - DVT/VTE - Prophylaxis VTE/DVT Device ordered at admit?: Yes
[2020-07-24] MEDS: methylPREDNISolone SUCCINATE 40 MG/ML VIAL IVP SCH ×2 (16:26→21:55)
[2020-07-24] MEDS: SODIUM CHLORIDE FLUSH 0.9% 10 ML SYRINGE IVP SCH (16:26)
[2020-07-24] MEDS: LACTATED RINGERS 1,000 ML IV SCH (16:27)
[2020-07-25] MEDS: LACTATED RINGERS 1,000 ML IV SCH ×3 (00:35→16:38)
[2020-07-25] MEDS: SODIUM CHLORIDE FLUSH 0.9% 10 ML SYRINGE IVP SCH ×3 (00:37→17:10)
[2020-07-25 05:31] LABS: BASOPHILS % (AUTO) 0.2 %; HGB - HEMOGLOBIN 10.7 g/dL (14.0-18.0); LYMPHOCYTES % (AUTO) 8.7 %; MEAN CORPUSCULAR HEMOGLOBIN 27.5 pg (27.0-31.0); MEAN CORPUSCULAR HGB CONC 31.7 g/dL (32.0-36.0); MEAN CORPUSCULAR VOLUME 86.9 fL (80.0-94.0); MEAN PLATELET VOLUME 10.3 fL (7.4-11.4); MONOCYTES % (AUTO) 4.6 %; NEUTROPHILS % (AUTO) 84.6 %; PLT - PLATELET COUNT 354 10^3/uL (130-450); RED BLOOD COUNT 3.89 10^6/uL (4.70-6.10); RED CELL DISTRIBUTION WIDTH 14.8 % (12.0-15.0); WHITE BLOOD COUNT 10.8 x10^3/uL (4.8-10.8)
[2020-07-25] MEDS: methylPREDNISolone SUCCINATE 40 MG/ML VIAL IVP SCH ×3 (05:32→21:22)
[2020-07-25] MEDS: SODIUM CHLORIDE FLUSH 0.9% 10 ML SYRINGE IVP PRN (05:32)
[2020-07-25 05:35] LABS: ABNORMAL LYMPHS % (MANUAL) 0 %
[2020-07-25 05:40] LABS: INR 1.8 (0.8-1.2); PT - PROTHROMBIN TIME 19.3 secs (9.9-12.6)
[2020-07-25 05:46] LABS: BAND NEUTROPHILS % (MANUAL) 11 %; LYMPHOCYTES # (MANUAL) 1.7 10^3/uL (1.5-3.5); LYMPHOCYTES % (MANUAL) 16 %; METAMYELOCYTES % (MANUAL) 1 %; MONOCYTES # (MANUAL) 0.2 10^3/uL (0.0-1.0)
[2020-07-25 05:47] LABS: DIFFERENTIAL COMMENT MANUAL DIFFERENTIAL; PLATELET ESTIMATE, MANUAL NORMAL (130-450,000) (NORMAL); PLATELET MORPHOLOGY NORMAL APPEARANCE (NORMAL); RBC MORPHOLOGY (MULTIPLE) NORMAL APPEARANCE (NORMAL)
[2020-07-25 05:48] LABS: ALBUMIN 2.5 g/dL (3.2-5.5); ALBUMIN/GLOBULIN RATIO 0.7 (1.0-2.2); CALCIUM 8.1 mg/dL (8.5-10.3); CREATININE 0.8 mg/dL (0.6-1.2); CRP - C-REACTIVE PROTEIN 17.9 mg/dL (0-1.0); TOTAL PROTEIN 6.3 g/dL (6.7-8.2)
--- NOTE | 2020-07-25 11:19 | PROVIDER PROGRESS NOTE ---
Subjective - Prog Note Date Prog Note Date: 07/25/20 Prog Note Time: 11:00 - Subjective Pt reports feeling: Improved Subjective: He says that he is feeling better than he was yesterday. He has had approximately 10 bowel movements of bloody diarrhea with "light pink" since 7pm last night, the last one being around 10 this morning. He still has non- radiating periumbilical/LLQ meneses, but he describes it as being more of a "tenderness and discomfort" rather than pain. He rates it 2/10 with no aggravating/alleviating factors. Denies any chest pain or shortness of breath. Objective - Vital Signs/Intake & Output Reviewed Vital Signs: Yes Vital Signs: Vital Signs x48h Temp Pulse Resp BP Pulse Ox 07/25/20 08:00 36.8 C 70 18 124/78 98 Intake & Output: Intake & Output 07/22/20 07/23/20 07/24/20 07/25/20 23:59 23:59 23:59 23:59 Intake Total 2791.667 1783.333 Output Total 175 Balance 2616.667 1783.333 - Objective General Appearance: positive: No acute distress, Alert. negative: Lethargic Eyes Bilateral: positive: Normal inspection, PERRL, Conjunctivae nml. negative: No scleral icterus ENT: positive: Pharynx nml. negative: Purulent nasal drainage, Pharyngeal erythema Neck: positive: Nml inspection Respiratory: positive: Chest non-tender, No respiratory distress, Breath sounds nml Cardiovascular: positive: Regular rate & rhythm, No murmur, No gallop. negative: Tachycardia Peripheral Pulses: 2+ Radial (R), 2+ Radial (L) Abdomen: positive: No distention, Tenderness (periumbilical, LLQ). negative: Guarding, Rebound, Hepatomegaly, Splenomegaly Back: positive: Nml inspection Skin: positive: Color nml, No rash, Warm, Dry. negative: Cyanosis, Diaphoresis, Pallor Extremities: positive: Non-tender, Full ROM, Nml appearance, No pedal edema. negative: Calf tenderness Neurologic/Psychiatric: positive: Oriented x3, Motor nml, Sensation nml, Mood/affect nml - Lab Results Fish Bones: 07/25/20 05:15 07/25/20 05:15 Other Labs: Lab Results x24hrs 07/25/20 07/25/20 07/25/20 Range/Units 07:46 05:15 05:15 WBC (4.8-10.8) x10^3/uL RBC (4.70-6.10) 10^6/uL Hgb (14.0-18.0) g/dL Hct (42.0-52.0) % MCV (80.0-94.0) fL MCH (27.0-31.0) pg MCHC (32.0-36.0) g/dL RDW (12.0-15.0) % Plt Count (130-450) 10^3/uL MPV (7.4-11.4) fL Neut # (Auto) Lymph # (Auto) [place] # (Auto) Eos # (Auto) Baso # (Auto) Absolute Nucleated RBC Total Counted Band Neuts % (Manual) (0 - 10) % Reactive Lymphs % (Man) % Abnorm Lymph % (Manual) % Metamyelocytes % ( - 0) % Nucleated RBC % Neutrophils # (Manual) (1.5-6.6) 10^3/uL Lymphocytes # (Manual) (1.5-3.5) 10^3/uL Monocytes # (Manual) (0.0-1.0) 10^3/uL Eosinophils # (Manual) (0-0.7) 10^3/uL Basophils # (Manual) (0-0.1) 10^3/uL Differential Comment WBC Morphology (NORMAL) Platelet Estimate (NORMAL) Platelet Morphology (NORMAL) RBC Morph Micro Appear (NORMAL) PT 19.3 H (9.9-12.6) secs INR 1.8 H (0.8-1.2) Sodium 137 (135-145) mmol/L Potassium 3.7 (3.5-5.0) mmol/L Chloride 100 L (101-111) mmol/L Carbon Dioxide 26 (21-32) mmol/L Anion Gap 11.0 (6-13) BUN 13 (6-20) mg/dL Creatinine 0.8 (0.6-1.2) mg/dL Estimated GFR (MDRD) 120 (>89) Glucose 174 H (70-100) mg/dL POC Whole Bld Glucose 148 H (70 - 100) mg/dL Calcium 8.1 L (8.5-10.3) mg/dL Total Bilirubin 1.0 (0.2-1.0) mg/dL AST 56 H (10-42) IU/L ALT 98 H (10-60) IU/L Alkaline Phosphatase 104 (42-121) IU/L C-Reactive Protein 17.9 H (0-1.0) mg/dL Total Protein 6.3 L (6.7-8.2) g/dL Albumin 2.5 L (3.2-5.5) g/dL Globulin 3.8 (2.1-4.2) g/dL Albumin/Globulin Ratio 0.7 L (1.0-2.2) Lipase (22-51) U/L 07/25/20 07/24/20 07/24/20 Range/Units 05:15 14:45 14:45 WBC 10.8 11.8 H (4.8-10.8) x10^3/uL RBC 3.89 L 3.80 L (4.70-6.10) 10^6/uL Hgb 10.7 L 10.6 L (14.0-18.0) g/dL Hct 33.8 L 32.2 L (42.0-52.0) % MCV 86.9 84.7 (80.0-94.0) fL MCH 27.5 27.9 (27.0-31.0) pg MCHC 31.7 L 32.9 (32.0-36.0) g/dL RDW 14.8 14.8 (12.0-15.0) % Plt Count 354 351 (130-450) 10^3/uL MPV 10.3 10.2 (7.4-11.4) fL Neut # (Auto) Not Reportable Not Reportable Lymph # (Auto) Not Reportable Not Reportable [place] # (Auto) Not Reportable Not Reportable Eos # (Auto) Not Reportable Not Reportable Baso # (Auto) Not Reportable Not Reportable Absolute Nucleated RBC Not Reportable Not Reportable Total Counted 100 100 Band Neuts % (Manual) 11 H 28 H (0 - 10) % Reactive Lymphs % (Man) 4 % Abnorm Lymph % (Manual) 0 0 % Metamyelocytes % 1 H 1 H ( - 0) % Nucleated RBC % Not Reportable Not Reportable Neutrophils # (Manual) 8.7 H 8.3 H (1.5-6.6) 10^3/uL Lymphocytes # (Manual) 1.7 1.9 (1.5-3.5) 10^3/uL Monocytes # (Manual) 0.2 1.5 H (0.0-1.0) 10^3/uL Eosinophils # (Manual) 0.0 0.0 (0-0.7) 10^3/uL Basophils # (Manual) 0.0 0.0 (0-0.1) 10^3/uL Differential Comment MANUAL DIFFERENTIAL MANUAL DIFFERENTIAL WBC Morphology NORMAL APPEARANCE (NORMAL) Platelet Estimate NORMAL (130-450,000) NORMAL (130-450,000) (NORMAL) Platelet Morphology NORMAL APPEARANCE NORMAL APPEARANCE (NORMAL) RBC Morph Micro Appear NORMAL APPEARANCE NORMAL APPEARANCE (NORMAL) PT (9.9-12.6) secs INR (0.8-1.2) Sodium 137 (135-145) mmol/L Potassium 3.5 (3.5-5.0) mmol/L Chloride 97 L (101-111) mmol/L Carbon Dioxide 27 (21-32) mmol/L Anion Gap 13.0 (6-13) BUN 13 (6-20) mg/dL Creatinine 0.9 (0.6-1.2) mg/dL Estimated GFR (MDRD) 105 (>89) Glucose 119 H (70-100) mg/dL POC Whole Bld Glucose (70 - 100) mg/dL Calcium 7.4 L (8.5-10.3) mg/dL Total Bilirubin 1.4 H (0.2-1.0) mg/dL AST 49 H (10-42) IU/L ALT 79 H (10-60) IU/L Alkaline Phosphatase 99 (42-121) IU/L C-Reactive Protein (0-1.0) mg/dL Total Protein 5.8 L (6.7-8.2) g/dL Albumin 2.2 L (3.2-5.5) g/dL Globulin 3.6 (2.1-4.2) g/dL Albumin/Globulin Ratio 0.6 L (1.0-2.2) Lipase 23 (22-51) U/L ABX Reporting Has patient been on IV antibiotics over the past 48 hours?: No Assessment/Plan - Problem List (1) Hypotension Impression: Last BP is 124/78. Will continue to monitor and hydrate as needed. Qualifiers: Hypotension type: hypotension due to hypovolemia Qualified Code(s): I95.89 - Other hypotension; E86.1 - Hypovolemia (2) Tachycardia Impression: Has maintained a rate less than 100 since 8pm last night. Will continue to monitor. (3) Dehydration Impression: Seondary to fluid loss through diarrhea. Will continue monitor and hydrate until stabilized. (4) Exacerbation of Crohn's disease Impression: Will continue methylprednisolone until bowels stabilize. Qualifiers: Digestive disease complication type: without complication Qualified Code(s): K50.90 - Crohn's disease, unspecified, without complications (5) Bloody diarrhea Impression: Secondary to Crohn's exacerbation. Will continue steroid therapy until bowels stabilize.
[2020-07-25] MEDS: MULTIVITAMIN W/MINERALS TABLET PO SCH (16:29)
[2020-07-25] MEDS: INSULIN ASPART 300 UNIT/3 ML PEN SUBQ SCH ×2 (17:09→21:15)
[2020-07-26] MEDS: SODIUM CHLORIDE FLUSH 0.9% 10 ML SYRINGE IVP SCH ×3 (00:46→16:55)
[2020-07-26] MEDS: LACTATED RINGERS 1,000 ML IV SCH ×3 (00:48→17:12)
[2020-07-26 05:12] LABS: BASOPHILS # (AUTO) 0.1 10^3/uL (0.0-0.1); BASOPHILS % (AUTO) 0.7 %; HGB - HEMOGLOBIN 9.8 g/dL (14.0-18.0); LYMPHOCYTES % (AUTO) 8.4 %; MEAN CORPUSCULAR HEMOGLOBIN 27.7 pg (27.0-31.0); MEAN CORPUSCULAR HGB CONC 31.6 g/dL (32.0-36.0); MEAN CORPUSCULAR VOLUME 87.6 fL (80.0-94.0); MEAN PLATELET VOLUME 10.4 fL (7.4-11.4); MONOCYTES # (AUTO) 0.6 10^3/uL (0.0-1.0); MONOCYTES % (AUTO) 4.8 %; NEUTROPHILS # (AUTO) 10.2 10^3/uL (1.5-6.6); NEUTROPHILS % (AUTO) 84.4 %; PLT - PLATELET COUNT 340 10^3/uL (130-450); RED BLOOD COUNT 3.54 10^6/uL (4.70-6.10); RED CELL DISTRIBUTION WIDTH 14.6 % (12.0-15.0)
[2020-07-26 05:18] LABS: ALBUMIN 2.3 g/dL (3.2-5.5); ALBUMIN/GLOBULIN RATIO 0.7 (1.0-2.2); BILIRUBIN,TOTAL 0.7 mg/dL (0.2-1.0); CALCIUM 7.9 mg/dL (8.5-10.3); CREATININE 0.6 mg/dL (0.6-1.2); TOTAL PROTEIN 5.8 g/dL (6.7-8.2)
[2020-07-26] MEDS: methylPREDNISolone SUCCINATE 40 MG/ML VIAL IVP SCH ×3 (05:35→21:08)
[2020-07-26] MEDS: INSULIN ASPART 300 UNIT/3 ML PEN SUBQ SCH ×4 (08:06→21:06)
[2020-07-26] MEDS: MULTIVITAMIN W/MINERALS TABLET PO SCH (08:14)
[2020-07-26 12:18] LABS: HEMOGLOBIN A1c% 6.2 % (4.27-6.07)
--- NOTE | 2020-07-26 12:55 | PROVIDER PROGRESS NOTE ---
Assessment/Plan - Problem List (1) Exacerbation of Crohn's disease Qualifiers: Digestive disease complication type: without complication Qualified Code(s): K50.90 - Crohn's disease, unspecified, without complications Assessment/Plan: 07/26 readmission of Exacerbation of Crohn disease. Patient still complains of abdominal pain and diarrhea. But the patient reported he feel better compared with his in the admission. CRP is trended down, WBC is likely a response to the steroid treatment and slight elevated. We will already called [facility] in the before, Recommended with steroid and antibody, Entyvio. Patient reported he had antibody Entyvio infusion after he was d/c from hospital, infused and referral by his PCP per his insurance which have two weeks effect, then he will have another infusion followup with every two months. Because the patient had an acute flare of Crohn's disease, we will continue intravenous Solu-Medrol (2) bloody diarrhea Impression: Patient reported he still has mild bleeding diarrhea, C. difficile was negative in the before. We will continue treat Crohn's disease with steroid but no antidiarreahea agent now. (3) Electrolyte disturbance resolved (4) Abnormal liver function test Impression: His AST/ALT values Has very slightly increased. pt had hx of biliary stent with replacement, history of jaundice, and ongoing intermittent alcohol use. Advised the patient quit alcohol drink, We will continue laboratory miller (5) Noncompliance w/medication treatment due to intermit use of medication Impression: Patient has history of medical noncompliant. The patient understands that he needs to remain compliant even when he is asymptomatic. - Current Meds Current Meds: Current Medications Generic Name Dose Route Start Last Admin Trade Name Gretchen PRN Reason Stop Dose Admin Lactated Ringer's 1,000 mls @ 125 mls/hr 07/24/20 16:00 07/26/20 10:30 Lr IV 125 mls/hr .Q8H JOHN Infusion Insulin Aspart 2 - 10 unit 07/25/20 17:00 07/26/20 12:42 Insulin Aspart 300 Unit/3 Ml Pen SUBQ 2 unit 0800,1200,1700,2100 JOHN Administration Protocol Methylprednisolone 40 mg 07/24/20 16:00 07/26/20 05:35 Methylprednisolone Succinate 40 Mg/Ml Vial IVP 40 mg TID JOHN Administration Multivitamins/Minerals 1 tab 07/25/20 16:00 07/26/20 08:14 Multivitamin W/Minerals Tablet PO 1 tab DAILYWM JOHN Administration Ondansetron HCl 4 mg 07/24/20 15:19 07/25/20 17:10 Ondansetron 4 Mg/2 Ml Vial IVP 4 mg Q6HR PRN Administration Nausea / Vomiting Sodium Chloride 10 ml 07/24/20 15:19 07/25/20 05:32 Sodium Chloride Flush 0.9% 10 Ml Syringe IVP 10 ml PRN PRN Administration NEEDED PER PROVIDER ORDERS Sodium Chloride 10 ml 07/24/20 17:00 07/26/20 05:35 Sodium Chloride Flush 0.9% 10 Ml Syringe IVP 10 ml 0100,0900,1700 JOHN Administration - Lab Result Fish Bone Diagrams: 07/26/20 04:40 07/26/20 04:40 Subjective - Subjective Patient Reports: Feeling Better Objective Vital Signs: Vital Signs - 24 hr 07/25/20 07/26/20 07/26/20 16:00 00:00 08:00 Temperature 36.3 C L 36.8 C 36.5 C Heart Rate [ 72 58 L 57 L Brachial] Respiratory 18 18 14 Rate Blood Pressure 121/67 120/67 116/68 [Left Brachial artery] O2 Saturation 97 93 94 Oxygen O2 Source Room air I&O (Last 24 Hrs): Intake and Output Totals x24h 07/24/20 07/25/20 07/26/20 23:59 23:59 23:59 Intake Total 2791.667 2929.166 2344.167 Output Total 175 300 Balance 2616.667 2629.166 2344.167 General: Alert, Oriented x3, Cooperative, No acute distress HEENT: Atraumatic, PERRLA Neck: Supple Lymphatic: no adenopathy Neuro: Alert, Non Focal, Oriented Times 3 Cardiovascular: Normal S1, Normal S2 Respiratory: Chest non-tender, No respiratory distress, Breath sounds nml Abdomen: Normal bowel sounds, Soft - Results Results: Laboratory Results WBC 12.0 x10^3/uL (4.8-10.8) H 07/26/20 04:40 RBC 3.54 10^6/uL (4.70-6.10) L 07/26/20 04:40 Hgb 9.8 g/dL (14.0-18.0) L 07/26/20 04:40 Hct 31.0 % (42.0-52.0) L 07/26/20 04:40 MCV 87.6 fL (80.0-94.0) 07/26/20 04:40 MCH 27.7 pg (27.0-31.0) 07/26/20 04:40 MCHC 31.6 g/dL (32.0-36.0) L 07/26/20 04:40 RDW 14.6 % (12.0-15.0) 07/26/20 04:40 Plt Count 340 10^3/uL (130-450) 07/26/20 04:40 MPV 10.4 fL (7.4-11.4) 07/26/20 04:40 Neut # (Auto) 10.2 10^3/uL (1.5-6.6) H 07/26/20 04:40 Lymph # (Auto) 1.0 10^3/uL (1.5-3.5) L 07/26/20 04:40 [place] # (Auto) 0.6 10^3/uL (0.0-1.0) 07/26/20 04:40 Eos # (Auto) 0.0 10^3/uL (0.0-0.7) 07/26/20 04:40 Baso # (Auto) 0.1 10^3/uL (0.0-0.1) 07/26/20 04:40 Absolute Nucleated RBC 0.03 x10^3/uL 07/26/20 04:40 Total Counted 100 07/25/20 05:15 Band Neuts % (Manual) 11 % (0-10) H 07/25/20 05:15 Reactive Lymphs % (Man) 4 % 07/24/20 14:45 Abnorm Lymph % (Manual) 0 % 07/25/20 05:15 Metamyelocytes % 1 % (-0) H 07/25/20 05:15 Nucleated RBC % 0.2 /100WBC 07/26/20 04:40 Neutrophils # (Manual) 8.7 10^3/uL (1.5-6.6) H 07/25/20 05:15 Lymphocytes # (Manual) 1.7 10^3/uL (1.5-3.5) 07/25/20 05:15 Monocytes # (Manual) 0.2 10^3/uL (0.0-1.0) 07/25/20 05:15 Eosinophils # (Manual) 0.0 10^3/uL (0-0.7) 07/25/20 05:15 Basophils # (Manual) 0.0 10^3/uL (0-0.1) 07/25/20 05:15 Differential Comment MANUAL DIFFERENTIAL 07/25/20 05:15 WBC Morphology NORMAL APPEARANCE (NORMAL) 07/25/20 05:15 Platelet Estimate NORMAL (130-450,000) (NORMAL) 07/25/20 05:15 Platelet Morphology NORMAL APPEARANCE (NORMAL) 07/25/20 05:15 RBC Morph Micro Appear NORMAL APPEARANCE (NORMAL) 07/25/20 05:15 PT 19.3 secs (9.9-12.6) H 07/25/20 05:15 INR 1.8 (0.8-1.2) H 07/25/20 05:15 Sodium 135 mmol/L (135-145) 07/26/20 04:40 Potassium 3.6 mmol/L (3.5-5.0) 07/26/20 04:40 Chloride 99 mmol/L (101-111) L 07/26/20 04:40 Carbon Dioxide 27 mmol/L (21-32) 07/26/20 04:40 Anion Gap 9.0 (6-13) 07/26/20 04:40 BUN 11 mg/dL (6-20) 07/26/20 04:40 Creatinine 0.6 mg/dL (0.6-1.2) 07/26/20 04:40 Estimated GFR (MDRD) 167 (>89) 07/26/20 04:40 Glucose 148 mg/dL (70-100) H 07/26/20 04:40 POC Whole Bld Glucose 150 mg/dL (70 - 100) H 07/26/20 11:16 Calcium 7.9 mg/dL (8.5-10.3) L 07/26/20 04:40 Total Bilirubin 0.7 mg/dL (0.2-1.0) 07/26/20 04:40 AST 70 IU/L (10-42) H 07/26/20 04:40 ALT 122 IU/L (10-60) H 07/26/20 04:40 Alkaline Phosphatase 94 IU/L (42-121) 07/26/20 04:40 C-Reactive Protein 9.0 mg/dL (0-1.0) H 07/26/20 04:40 Total Protein 5.8 g/dL (6.7-8.2) L 07/26/20 04:40 Albumin 2.3 g/dL (3.2-5.5) L 07/26/20 04:40 Globulin 3.5 g/dL (2.1-4.2) 07/26/20 04:40 Albumin/Globulin Ratio 0.7 (1.0-2.2) L 07/26/20 04:40 Lipase 23 U/L (22-51) 07/24/20 14:45 ABX Reporting Has patient been on IV antibiotics over the past 48 hours?: No Current Medications - Current Medications Current Medications: Active Medications Acetaminophen (Acetaminophen 325 Mg Tablet) 650 mg PO Q4HR PRN PRN Reason: Pain 1 to 4 Lactated Ringer's (Lr) 1,000 mls @ 125 mls/hr IV .Q8H [facility] Last Infusion: 07/26/20 10:30 Dose: 125 mls/hr Documented by: Insulin Aspart (Insulin Aspart 300 Unit/3 Ml Pen) 2 - 10 unit SUBQ 0800,1200,1700,2100 [facility]; Protocol Last Admin: 07/26/20 12:42 Dose: 2 unit Documented by: Methylprednisolone (Methylprednisolone Succinate 40 Mg/Ml Vial) 40 mg IVP TID [facility] Last Admin: 07/26/20 05:35 Dose: 40 mg Documented by: Multivitamins/Minerals (Multivitamin W/Minerals Tablet) 1 tab PO DAILYWM [facility] Last Admin: 07/26/20 08:14 Dose: 1 tab Documented by: Ondansetron HCl (Ondansetron Odt 4 Mg Tablet) 4 mg TL Q6HR PRN PRN Reason: Nausea / Vomiting Ondansetron HCl (Ondansetron 4 Mg/2 Ml Vial) 4 mg IVP Q6HR PRN PRN Reason: Nausea / Vomiting Last Admin: 07/25/20 17:10 Dose: 4 mg Documented by: Oxycodone HCl (Oxycodone 5 Mg Tablet) 5 mg PO Q4HR PRN PRN Reason: Pain 5 to 7 Sodium Chloride (Sodium Chloride Flush 0.9% 10 Ml Syringe) 10 ml IVP PRN PRN PRN Reason: NEEDED PER PROVIDER ORDERS Last Admin: 07/25/20 05:32 Dose: 10 ml Documented by: Sodium Chloride (Sodium Chloride Flush 0.9% 10 Ml Syringe) 10 ml IVP 0100,0900,1700 JOHN Last Admin: 07/26/20 05:35 Dose: 10 ml Documented by: Ondansetron Odt [Zofran Odt] 4 mg TL Q6H PRN 07/24/20
[2020-07-26] MEDS: SODIUM CHLORIDE FLUSH 0.9% 10 ML SYRINGE IVP PRN (15:06)
[2020-07-26] MEDS: oxyCODONE 5 MG TABLET PO PRN (18:09)
[2020-07-27] MEDS: LACTATED RINGERS 1,000 ML IV SCH ×3 (00:30→18:34)
[2020-07-27] MEDS: SODIUM CHLORIDE FLUSH 0.9% 10 ML SYRINGE IVP SCH ×3 (01:26→17:07)
[2020-07-27 05:08] LABS: BASOPHILS # (AUTO) 0.1 10^3/uL (0.0-0.1); BASOPHILS % (AUTO) 0.7 %; EOSINOPHILS % (AUTO) 0.1 %; HGB - HEMOGLOBIN 9.5 g/dL (14.0-18.0); LYMPHOCYTES % (AUTO) 7.3 %; MEAN CORPUSCULAR HEMOGLOBIN 27.8 pg (27.0-31.0); MEAN CORPUSCULAR VOLUME 86.8 fL (80.0-94.0); MEAN PLATELET VOLUME 10.2 fL (7.4-11.4); MONOCYTES # (AUTO) 0.8 10^3/uL (0.0-1.0); MONOCYTES % (AUTO) 5.9 %; NEUTROPHILS # (AUTO) 11.9 10^3/uL (1.5-6.6); NEUTROPHILS % (AUTO) 84.6 %; PLT - PLATELET COUNT 341 10^3/uL (130-450); RED BLOOD COUNT 3.42 10^6/uL (4.70-6.10); RED CELL DISTRIBUTION WIDTH 14.6 % (12.0-15.0); WHITE BLOOD COUNT 14.1 x10^3/uL (4.8-10.8)
[2020-07-27 05:29] LABS: ALBUMIN 2.1 g/dL (3.2-5.5); ALBUMIN/GLOBULIN RATIO 0.6 (1.0-2.2); BILIRUBIN,TOTAL 0.6 mg/dL (0.2-1.0); CALCIUM 7.9 mg/dL (8.5-10.3); CREATININE 0.6 mg/dL (0.6-1.2); CRP - C-REACTIVE PROTEIN 4.5 mg/dL (0-1.0); TOTAL PROTEIN 5.4 g/dL (6.7-8.2)
[2020-07-27] MEDS: methylPREDNISolone SUCCINATE 40 MG/ML VIAL IVP SCH ×3 (05:30→22:23)
[2020-07-27] MEDS: INSULIN ASPART 300 UNIT/3 ML PEN SUBQ SCH ×4 (07:41→20:56)
[2020-07-27] MEDS: MULTIVITAMIN W/MINERALS TABLET PO SCH (08:39)
[2020-07-27] MEDS: ACETAMINOPHEN 325 MG TABLET PO PRN (08:39)
[2020-07-27] MEDS: oxyCODONE 5 MG TABLET PO PRN (12:13)
--- NOTE | 2020-07-27 14:20 | PROVIDER PROGRESS NOTE ---
Assessment/Plan - Problem List (1) Exacerbation of Crohn's disease Qualifiers: Digestive disease complication type: without complication Qualified Code(s): K50.90 - Crohn's disease, unspecified, without complications Assessment/Plan: 07/27 Patient reported he feel abdominal pain is slightly better and he reported his diarrhea Times are reduced but Still with bloody diarrhea. Patient's CRP is significantly reduced. patient still had elevated WBC but patient is taking steroid now. Patient reported he had telephone appointment with his GI doctor on tomorrow, I discussed with the patient, I would like to join the meeting during his meeting with his GI doctor and discussed the care plan with his GI specialty. pt agreed the plan. Continue intravenous Solu-Medrol, Continue laboratory and vital signs monitor patient, continue intravenous IV fluids 07/26 readmission of Exacerbation of Crohn disease. Patient still complains of abdominal pain and diarrhea. But the patient reported he feel better compared with his in the admission. CRP is trended down, WBC is likely a response to the steroid treatment and slight elevated. We will already called [facility] in the before, Recommended with steroid and antibody, Entyvio. Patient reported he had antibody Entyvio infusion after he was d/c from hospital, infused and referral by his PCP per his insurance which have two weeks effect, then he will have another infusion followup with every two months. Because the patient had an acute flare of Crohn's disease, we will continue i ntravenous Solu-Medrol (2) bloody diarrhea Impression: Patient reported he still has mild bleeding diarrhea, C. difficile was negative in the before. We will continue treat Crohn's disease with steroid but no antidiarreahea agent now. (3) Electrolyte disturbance resolved (4) Abnormal liver function test Impression: His AST/ALT values Has very slightly increased. pt had hx of biliary stent with replacement, history of jaundice, and ongoing intermittent alcohol use. 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 The patient understands that he needs to remain compliant even when he is asymptomatic. (6)anemia Patient had a hemoglobin 9.5, slightly reduced. Patient had bloody diarrhea, Also patient MCV is less than 90. We will do anemia study and followup. - Current Meds Current Meds: Current Medications Generic Name Dose Route Start Last Admin Trade Name Gretchen PRN Reason Stop Dose Admin Acetaminophen 650 mg 07/24/20 15:19 07/27/20 08:39 Acetaminophen 325 Mg Tablet PO 650 mg Q4HR PRN Administration Pain 1 to 4 Lactated Ringer's 1,000 mls @ 100 mls/hr 07/27/20 07:47 07/27/20 08:25 Lr IV 100 mls/hr .Q10H JOHN Administration Insulin Aspart 2 - 10 unit 07/25/20 17:00 07/27/20 11:53 Insulin Aspart 300 Unit/3 Ml Pen SUBQ 2 unit 0800,1200,1700,2100 JOHN Administration Protocol Methylprednisolone 40 mg 07/24/20 16:00 07/27/20 05:30 Methylprednisolone Succinate 40 Mg/Ml Vial IVP 40 mg TID JOHN Administration Multivitamins/Minerals 1 tab 07/25/20 16:00 07/27/20 08:39 Multivitamin W/Minerals Tablet PO 1 tab DAILYWM JOHN Administration Ondansetron HCl 4 mg 07/24/20 15:19 07/25/20 17:10 Ondansetron 4 Mg/2 Ml Vial IVP 4 mg Q6HR PRN Administration Nausea / Vomiting Oxycodone HCl 5 mg 07/24/20 15:19 07/27/20 12:13 Oxycodone 5 Mg Tablet PO 5 mg Q4HR PRN Administration Pain 5 to 7 Sodium Chloride 10 ml 07/24/20 15:19 07/26/20 15:06 Sodium Chloride Flush 0.9% 10 Ml Syringe IVP 10 ml PRN PRN Administration NEEDED PER PROVIDER ORDERS Sodium Chloride 10 ml 07/24/20 17:00 07/27/20 05:30 Sodium Chloride Flush 0.9% 10 Ml Syringe IVP 10 ml 0100,0900,1700 JOHN Administration - Lab Result Fish Bone Diagrams: 07/27/20 04:45 07/27/20 04:45 - Additional Planning My Orders: My Active Orders 07/27/20 07:47 Lactated Ringers [Lr] 1,000 ml IV 100 mls/hr 07/27/20 14:18 FERRITIN [IAI] Routine IRON TIBC PANEL [CHEM] Routine LDH - LACTATE DEHYDROGENASE [CHEM] Routine RETIC [HEME] Routine VITAMIN B12 [IAI] Routine 07/28/20 05:00 CBC - COMP BLD CT W/AUTO DIFF [HEME] DAILYLAB CMP [COMPREHENSIVE METABOLIC PANEL] [CHEM] DAILYLAB CRP - C-REACTIVE PROTEIN [CHEM] DAILYLAB 07/29/20 05:00 CBC - COMP BLD CT W/AUTO DIFF [HEME] DAILYLAB CMP [COMPREHENSIVE METABOLIC PANEL] [CHEM] DAILYLAB CRP - C-REACTIVE PROTEIN [CHEM] DAILYLAB 07/30/20 05:00 CBC - COMP BLD CT W/AUTO DIFF [HEME] DAILYLAB CMP [COMPREHENSIVE METABOLIC PANEL] [CHEM] DAILYLAB CRP - C-REACTIVE PROTEIN [CHEM] DAILYLAB 07/31/20 05:00 CBC - COMP BLD CT W/AUTO DIFF [HEME] DAILYLAB CMP [COMPREHENSIVE METABOLIC PANEL] [CHEM] DAILYLAB CRP - C-REACTIVE PROTEIN [CHEM] DAILYLAB 08/01/20 05:00 CBC - COMP BLD CT W/AUTO DIFF [HEME] DAILYLAB CMP [COMPREHENSIVE METABOLIC PANEL] [CHEM] DAILYLAB CRP - C-REACTIVE PROTEIN [CHEM] DAILYLAB Subjective - Subjective Patient Reports: Feeling Better Objective Vital Signs: Vital Signs - 24 hr 07/26/20 07/27/20 07/27/20 16:49 00:00 07:32 Temperature 36.6 C 36.5 C 36.9 C Heart Rate [ 69 55 L 63 Brachial] Respiratory 20 16 16 Rate Blood Pressure 111/62 117/61 125/68 [Left Brachial artery] O2 Saturation 94 95 93 Oxygen O2 Source Room air I&O (Last 24 Hrs): Intake and Output Totals x24h 07/25/20 07/26/20 07/27/20 23:59 23:59 23:59 Intake Total 2929.166 3901.667 2861.5 Output Total 300 Balance 2629.166 3901.667 2861.5 General: Alert, Oriented x3, No acute distress HEENT: Atraumatic, PERRLA Neck: Supple Lymphatic: no adenopathy Neuro: Alert, Non Focal, Oriented Times 3 Cardiovascular: Regular rate, Normal S1, Normal S2 Respiratory: Chest non-tender, No respiratory distress, Breath sounds nml Abdomen: Normal bowel sounds, Soft Extremities: Normal pulses Skin: No breakdown - Results Results: Laboratory Results WBC 14.1 x10^3/uL (4.8-10.8) H 07/27/20 04:45 RBC 3.42 10^6/uL (4.70-6.10) L 07/27/20 04:45 Hgb 9.5 g/dL (14.0-18.0) L 07/27/20 04:45 Hct 29.7 % (42.0-52.0) L 07/27/20 04:45 MCV 86.8 fL (80.0-94.0) 07/27/20 04:45 MCH 27.8 pg (27.0-31.0) 07/27/20 04:45 MCHC 32.0 g/dL (32.0-36.0) 07/27/20 04:45 RDW 14.6 % (12.0-15.0) 07/27/20 04:45 Plt Count 341 10^3/uL (130-450) 07/27/20 04:45 MPV 10.2 fL (7.4-11.4) 07/27/20 04:45 Neut # (Auto) 11.9 10^3/uL (1.5-6.6) H 07/27/20 04:45 Lymph # (Auto) 1.0 10^3/uL (1.5-3.5) L 07/27/20 04:45 [place] # (Auto) 0.8 10^3/uL (0.0-1.0) 07/27/20 04:45 Eos # (Auto) 0.0 10^3/uL (0.0-0.7) 07/27/20 04:45 Baso # (Auto) 0.1 10^3/uL (0.0-0.1) 07/27/20 04:45 Absolute Nucleated RBC 0.03 x10^3/uL 07/27/20 04:45 Total Counted 100 07/25/20 05:15 Band Neuts % (Manual) 11 % (0-10) H 07/25/20 05:15 Reactive Lymphs % (Man) 4 % 07/24/20 14:45 Abnorm Lymph % (Manual) 0 % 07/25/20 05:15 Metamyelocytes % 1 % (-0) H 07/25/20 05:15 Nucleated RBC % 0.2 /100WBC 07/27/20 04:45 Neutrophils # (Manual) 8.7 10^3/uL (1.5-6.6) H 07/25/20 05:15 Lymphocytes # (Manual) 1.7 10^3/uL (1.5-3.5) 07/25/20 05:15 Monocytes # (Manual) 0.2 10^3/uL (0.0-1.0) 07/25/20 05:15 Eosinophils # (Manual) 0.0 10^3/uL (0-0.7) 07/25/20 05:15 Basophils # (Manual) 0.0 10^3/uL (0-0.1) 07/25/20 05:15 Differential Comment MANUAL DIFFERENTIAL 07/25/20 05:15 WBC Morphology NORMAL APPEARANCE (NORMAL) 07/25/20 05:15 Platelet Estimate NORMAL (130-450,000) (NORMAL) 07/25/20 05:15 Platelet Morphology NORMAL APPEARANCE (NORMAL) 07/25/20 05:15 RBC Morph Micro Appear NORMAL APPEARANCE (NORMAL) 07/25/20 05:15 PT 19.3 secs (9.9-12.6) H 07/25/20 05:15 INR 1.8 (0.8-1.2) H 07/25/20 05:15 Sodium 136 mmol/L (135-145) 07/27/20 04:45 Potassium 4.0 mmol/L (3.5-5.0) 07/27/20 04:45 Chloride 102 mmol/L (101-111) 07/27/20 04:45 Carbon Dioxide 28 mmol/L (21-32) 07/27/20 04:45 Anion Gap 6.0 (6-13) 07/27/20 04:45 BUN 13 mg/dL (6-20) 07/27/20 04:45 Creatinine 0.6 mg/dL (0.6-1.2) 07/27/20 04:45 Estimated GFR (MDRD) 167 (>89) 07/27/20 04:45 Glucose 147 mg/dL (70-100) H 07/27/20 04:45 POC Whole Bld Glucose 143 mg/dL (70 - 100) H 07/27/20 11:18 Estimat Average Glucose 131 mg/dL (70-100) H 07/26/20 04:40 Hemoglobin A1c % 6.2 % (4.27-6.07) H 07/26/20 04:40 Calcium 7.9 mg/dL (8.5-10.3) L 07/27/20 04:45 Total Bilirubin 0.6 mg/dL (0.2-1.0) 07/27/20 04:45 AST 35 IU/L (10-42) 07/27/20 04:45 ALT 108 IU/L (10-60) H 07/27/20 04:45 Alkaline Phosphatase 88 IU/L (42-121) 07/27/20 04:45 C-Reactive Protein 4.5 mg/dL (0-1.0) H 07/27/20 04:45 Total Protein 5.4 g/dL (6.7-8.2) L 07/27/20 04:45 Albumin 2.1 g/dL (3.2-5.5) L 07/27/20 04:45 Globulin 3.3 g/dL (2.1-4.2) 07/27/20 04:45 Albumin/Globulin Ratio 0.6 (1.0-2.2) L 07/27/20 04:45 Lipase 23 U/L (22-51) 07/24/20 14:45 ABX Reporting Has patient been on IV antibiotics over the past 48 hours?: No Current Medications - Current Medications Current Medications: Active Medications Acetaminophen (Acetaminophen 325 Mg Tablet) 650 mg PO Q4HR PRN PRN Reason: Pain 1 to 4 Last Admin: 07/27/20 08:39 Dose: 650 mg Documented by: Lactated Ringer's (Lr) 1,000 mls @ 100 mls/hr IV .Q10H [facility] Last Admin: 07/27/20 08:25 Dose: 100 mls/hr Documented by: Insulin Aspart (Insulin Aspart 300 Unit/3 Ml Pen) 2 - 10 unit SUBQ 0800,1200,1700,2100 [facility]; Protocol Last Admin: 07/27/20 11:53 Dose: 2 unit Documented by: Methylprednisolone (Methylprednisolone Succinate 40 Mg/Ml Vial) 40 mg IVP TID [facility] Last Admin: 07/27/20 14:26 Dose: 40 mg Documented by: Multivitamins/Minerals (Multivitamin W/Minerals Tablet) 1 tab PO DAILYWM [facility] Last Admin: 07/27/20 08:39 Dose: 1 tab Documented by: Ondansetron HCl (Ondansetron Odt 4 Mg Tablet) 4 mg TL Q6HR PRN PRN Reason: Nausea / Vomiting Ondansetron HCl (Ondansetron 4 Mg/2 Ml Vial) 4 mg IVP Q6HR PRN PRN Reason: Nausea / Vomiting Last Admin: 07/25/20 17:10 Dose: 4 mg Documented by: Oxycodone HCl (Oxycodone 5 Mg Tablet) 5 mg PO Q4HR PRN PRN Reason: Pain 5 to 7 Last Admin: 07/27/20 12:13 Dose: 5 mg Documented by: Sodium Chloride (Sodium Chloride Flush 0.9% 10 Ml Syringe) 10 ml IVP PRN PRN PRN Reason: NEEDED PER PROVIDER ORDERS Last Admin: 07/27/20 14:26 Dose: 10 ml Documented by: Sodium Chloride (Sodium Chloride Flush 0.9% 10 Ml Syringe) 10 ml IVP 0100,0900,1700 JOHN Last Admin: 07/27/20 05:30 Dose: 10 ml Documented by: Ondansetron Odt [Zofran Odt] 4 mg TL Q6H PRN 07/24/20
[2020-07-27] MEDS: SODIUM CHLORIDE FLUSH 0.9% 10 ML SYRINGE IVP PRN (14:26)
[2020-07-27 14:38] LABS: ABSOLUTE RETICS # AUTO 0.162 10^6/uL (0.020-0.110); RED BLOOD COUNT 3.59 10^6/uL (4.70-6.10)
[2020-07-27 15:09] LABS: % IRON SATURATION 16 % (20-50); IRON 24 ug/dL (45-182); TOTAL IRON BINDING CAPACITY 150 ug/dL (250-450); TRANSFERRIN 107 mg/dL (180-329)
[2020-07-27 15:18] LABS: FERRITIN 294.3 ng/mL (23.9-336.2)
[2020-07-27] MEDS: FERROUS GLUCONATE 324 MG TABLET PO SCH (16:14)
[2020-07-28] MEDS: SODIUM CHLORIDE FLUSH 0.9% 10 ML SYRINGE IVP SCH ×4 (03:13→23:50)
[2020-07-28] MEDS: LACTATED RINGERS 1,000 ML IV SCH ×3 (04:26→23:50)
[2020-07-28] MEDS: oxyCODONE 5 MG TABLET PO PRN (04:26)
[2020-07-28 05:09] LABS: BASOPHILS # (AUTO) 0.1 10^3/uL (0.0-0.1); BASOPHILS % (AUTO) 0.5 %; EOSINOPHILS % (AUTO) 0.1 %; HGB - HEMOGLOBIN 10.9 g/dL (14.0-18.0); LYMPHOCYTES # (AUTO) 1.3 10^3/uL (1.5-3.5); MEAN CORPUSCULAR HEMOGLOBIN 27.9 pg (27.0-31.0); MEAN CORPUSCULAR HGB CONC 31.7 g/dL (32.0-36.0); MEAN PLATELET VOLUME 10.3 fL (7.4-11.4); MONOCYTES # (AUTO) 0.9 10^3/uL (0.0-1.0); MONOCYTES % (AUTO) 5.7 %; NEUTROPHILS # (AUTO) 13.9 10^3/uL (1.5-6.6); NEUTROPHILS % (AUTO) 84.3 %; PLT - PLATELET COUNT 423 10^3/uL (130-450); RED BLOOD COUNT 3.91 10^6/uL (4.70-6.10); RED CELL DISTRIBUTION WIDTH 14.7 % (12.0-15.0); WHITE BLOOD COUNT 16.4 x10^3/uL (4.8-10.8)
[2020-07-28 05:19] LABS: ALBUMIN 2.6 g/dL (3.2-5.5); ALBUMIN/GLOBULIN RATIO 0.7 (1.0-2.2); BILIRUBIN,TOTAL 0.7 mg/dL (0.2-1.0); CREATININE 0.6 mg/dL (0.6-1.2); TOTAL PROTEIN 6.1 g/dL (6.7-8.2)
[2020-07-28] MEDS: methylPREDNISolone SUCCINATE 40 MG/ML VIAL IVP SCH ×3 (06:57→22:25)
[2020-07-28] MEDS: MULTIVITAMIN W/MINERALS TABLET PO SCH (07:57)
[2020-07-28] MEDS: FERROUS GLUCONATE 324 MG TABLET PO SCH (07:57)
[2020-07-28] MEDS: INSULIN ASPART 300 UNIT/3 ML PEN SUBQ SCH ×4 (07:58→22:10)
--- NOTE | 2020-07-28 11:41 | PROVIDER PROGRESS NOTE ---
Assessment/Plan - Problem List (1) Exacerbation of Crohn's disease Qualifiers: Digestive disease complication type: without complication Qualified Code(s): K50.90 - Crohn's disease, unspecified, without complications Assessment/Plan: 07/28, Improved. Patient reported he had 3 time bloody diarrhea on yesterday evening, Reduced from before yesterday 7 times. He also reported his abdominal pain is better. Patient hemoglobin significantly go up today his hemoglobin is 10.9 from yesterday 9.5. Patient's CRP continue trended down, today CRP is 4.0. We will continue intravenous Solu-Medrol. Today patient had telehealth telephone appointment with his GI on this afternoon 4 PM, I Will go with the patient to talk with his GI for care plan. 07/27 Patient reported he feel abdominal pain is slightly better and he reported his diarrhea Times are reduced but Still with bloody diarrhea. Patient's CRP is significantly reduced. patient still had elevated WBC but patient is taking steroid now. Patient reported he had telephone appointment with his GI doctor on tomorrow, I discussed with the patient, I would like to join the meeting during his meeting with his GI doctor and discussed the care plan with his GI specialty. pt agreed the plan. Continue intravenous Solu-Medrol, Continue laboratory and vital signs monitor patient, continue intravenous IV fluids 07/26 readmission of Exacerbation of Crohn disease. Patient still complains of abdominal pain and diarrhea. But the patient reported he feel better compared with his in the admission. CRP is trended down, WBC is likely a response to the steroid treatment and slight elevated. We will already called [facility] in the before, Recommended with steroid and antibody, Entyvio. Patient reported he had antibody Entyvio infusion after he was d/c from hospital, infused and referral by his PCP per his insurance which have two weeks effect, then he will have another infusion followup with every two months. Because the patient had an acute flare of Crohn's disease, we will continue intravenous Solu-Medrol (2) bloody diarrhea Impression: 07/28, Improved, his times of diarrhea was reduced. Patient hemoglobin rise significantly, Today HGB is 10.9, yesterday HGB is 9.5 Patient reported he still has mild bleeding diarrhea, C. difficile was negative in the before. We will continue treat Crohn's disease with steroid but no antidiarreahea agent now. (3) Electrolyte disturbance resolved (4) Abnormal liver function test Impression: 07/28 Liver enzyme reduced, improved. 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 His AST/ALT values Has very slightly increased. pt had hx of biliary stent with replacement, history of jaundice, and ongoing intermittent alcohol use. 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 The patient understands that he nee ds to remain compliant even when he is asymptomatic. (6)anemia 07/28, Patient anemia is likely combination of acute bleeding diarrhea with acute blood loss and chronic iron deficiency. times of diarrhea is reduced and improved, Anemia studies show patient had iron deficiency, patient is prescribed iron pill Patient had a hemoglobin 9.5, slightly reduced. Patient had bloody diarrhea, Also patient MCV is less than 90. We will do anemia study and followup. - Current Meds Current Meds: Current Medications Generic Name Dose Route Start Last Admin Trade Name Freq PRN Reason Stop Dose Admin Acetaminophen 650 mg 07/24/20 15:19 07/27/20 08:39 Acetaminophen 325 Mg Tablet PO 650 mg Q4HR PRN Administration Pain 1 to 4 Ferrous Gluconate 324 mg 07/27/20 16:00 07/28/20 07:57 Ferrous Gluconate 324 Mg Tablet PO 324 mg DAILYWM JOHN Administration Lactated Ringer's 1,000 mls @ 100 mls/hr 07/27/20 07:47 07/28/20 04:26 Lr IV 100 mls/hr .Q10H JOHN Administration Insulin Aspart 2 - 10 unit 07/25/20 17:00 07/28/20 07:58 Insulin Aspart 300 Unit/3 Ml Pen SUBQ Not Given 0800,1200,1700,2100 JOHN Protocol Methylprednisolone 40 mg 07/24/20 16:00 07/28/20 06:57 Methylprednisolone Succinate 40 Mg/Ml Vial IVP 40 mg TID JOHN Administration Multivitamins/Minerals 1 tab 07/25/20 16:00 07/28/20 07:57 Multivitamin W/Minerals Tablet PO 1 tab DAILYWM JOHN Administration Ondansetron HCl 4 mg 07/24/20 15:19 07/25/20 17:10 Ondansetron 4 Mg/2 Ml Vial IVP 4 mg Q6HR PRN Administration Nausea / Vomiting Oxycodone HCl 5 mg 07/24/20 15:19 07/28/20 04:26 Oxycodone 5 Mg Tablet PO 5 mg Q4HR PRN Administration Pain 5 to 7 Sodium Chloride 10 ml 07/24/20 15:19 07/27/20 14:26 Sodium Chloride Flush 0.9% 10 Ml Syringe IVP 10 ml PRN PRN Administration NEEDED PER PROVIDER ORDERS Sodium Chloride 10 ml 07/24/20 17:00 07/28/20 07:58 Sodium Chloride Flush 0.9% 10 Ml Syringe IVP Not Given 0100,0900,1700 JOHN - Lab Result Fish Bone Diagrams: 07/28/20 04:28 07/28/20 04:28 - Additional Planning My Orders: My Active Orders 07/27/20 14:35 Nutrition Consult [CONS] Routine 07/27/20 16:00 Ferrous Gluconate [Fergon] 324 mg PO DAILYWM 07/29/20 05:00 CBC - COMP BLD CT W/AUTO DIFF [HEME] DAILYLAB CMP [COMPREHENSIVE METABOLIC PANEL] [CHEM] DAILYLAB CRP - C-REACTIVE PROTEIN [CHEM] DAILYLAB 07/30/20 05:00 CBC - COMP BLD CT W/AUTO DIFF [HEME] DAILYLAB CMP [COMPREHENSIVE METABOLIC PANEL] [CHEM] DAILYLAB CRP - C-REACTIVE PROTEIN [CHEM] DAILYLAB 07/31/20 05:00 CBC - COMP BLD CT W/AUTO DIFF [HEME] DAILYLAB CMP [COMPREHENSIVE METABOLIC PANEL] [CHEM] DAILYLAB CRP - C-REACTIVE PROTEIN [CHEM] DAILYLAB 08/01/20 05:00 CBC - COMP BLD CT W/AUTO DIFF [HEME] DAILYLAB CMP [COMPREHENSIVE METABOLIC PANEL] [CHEM] DAILYLAB CRP - C-REACTIVE PROTEIN [CHEM] DAILYLAB Subjective - Subjective Patient Reports: Feeling Better Objective Vital Signs: Vital Signs - 24 hr 07/27/20 07/28/20 07/28/20 15:43 01:38 08:00 Temperature 36.5 C 36.7 C 36.9 C Heart Rate [ 58 L 68 83 Brachial] Respiratory 20 20 16 Rate Blood Pressure 116/66 112/65 [Left Brachial artery] Blood Pressure 116/61 [Right Brachial artery] O2 Saturation 95 96 96 Oxygen O2 Source Room air I&O (Last 24 Hrs): Intake and Output Totals x24h 07/26/20 07/27/20 07/28/20 23:59 23:59 23:59 Intake Total 3901.667 4844.833 1163.333 Balance 3901.667 4844.833 1163.333 General: Alert, Oriented x3, Cooperative, No acute distress HEENT: Atraumatic Neck: Supple Lymphatic: no adenopathy Neuro: Alert, Non Focal, Oriented Times 3 Cardiovascular: Regular rate, Normal S1, Normal S2 Respiratory: Chest non-tender, No respiratory distress, Breath sounds nml Abdomen: Normal bowel sounds, Soft, No tenderness Extremities: Normal pulses Skin: No breakdown - Results Results: Laboratory Results WBC 16.4 x10^3/uL (4.8-10.8) H 07/28/20 04:28 RBC 3.91 10^6/uL (4.70-6.10) L 07/28/20 04:28 Hgb 10.9 g/dL (14.0-18.0) L 07/28/20 04:28 Hct 34.4 % (42.0-52.0) L 07/28/20 04:28 MCV 88.0 fL (80.0-94.0) 07/28/20 04:28 MCH 27.9 pg (27.0-31.0) 07/28/20 04:28 MCHC 31.7 g/dL (32.0-36.0) L 07/28/20 04:28 RDW 14.7 % (12.0-15.0) 07/28/20 04:28 Plt Count 423 10^3/uL (130-450) 07/28/20 04:28 MPV 10.3 fL (7.4-11.4) 07/28/20 04:28 Reticulocyte % (Auto) 4.50 % (0.5-2.3) H 07/27/20 14:32 Neut # (Auto) 13.9 10^3/uL (1.5-6.6) H 07/28/20 04:28 Lymph # (Auto) 1.3 10^3/uL (1.5-3.5) L 07/28/20 04:28 [place] # (Auto) 0.9 10^3/uL (0.0-1.0) 07/28/20 04:28 Eos # (Auto) 0.0 10^3/uL (0.0-0.7) 07/28/20 04:28 Baso # (Auto) 0.1 10^3/uL (0.0-0.1) 07/28/20 04:28 Absolute Nucleated RBC 0.05 x10^3/uL 07/28/20 04:28 Total Counted 100 07/25/20 05:15 Band Neuts % (Manual) 11 % (0-10) H 07/25/20 05:15 Reactive Lymphs % (Man) 4 % 07/24/20 14:45 Abnorm Lymph % (Manual) 0 % 07/25/20 05:15 Metamyelocytes % 1 % (-0) H 07/25/20 05:15 Nucleated RBC % 0.3 /100WBC 07/28/20 04:28 Neutrophils # (Manual) 8.7 10^3/uL (1.5-6.6) H 07/25/20 05:15 Lymphocytes # (Manual) 1.7 10^3/uL (1.5-3.5) 07/25/20 05:15 Monocytes # (Manual) 0.2 10^3/uL (0.0-1.0) 07/25/20 05:15 Eosinophils # (Manual) 0.0 10^3/uL (0-0.7) 07/25/20 05:15 Basophils # (Manual) 0.0 10^3/uL (0-0.1) 07/25/20 05:15 Differential Comment MANUAL DIFFERENTIAL 07/25/20 05:15 WBC Morphology NORMAL APPEARANCE (NORMAL) 07/25/20 05:15 Platelet Estimate NORMAL (130-450,000) (NORMAL) 07/25/20 05:15 Platelet Morphology NORMAL APPEARANCE (NORMAL) 07/25/20 05:15 RBC Morph Micro Appear NORMAL APPEARANCE (NORMAL) 07/25/20 05:15 Absolute Retic 0.162 10^6/uL (0.020-0.110) H 07/27/20 14:32 PT 19.3 secs (9.9-12.6) H 07/25/20 05:15 INR 1.8 (0.8-1.2) H 07/25/20 05:15 Sodium 133 mmol/L (135-145) L 07/28/20 04:28 Potassium 4.3 mmol/L (3.5-5.0) 07/28/20 04:28 Chloride 98 mmol/L (101-111) L 07/28/20 04:28 Carbon Dioxide 25 mmol/L (21-32) 07/28/20 04:28 Anion Gap 10.0 (6-13) 07/28/20 04:28 BUN 10 mg/dL (6-20) 07/28/20 04:28 Creatinine 0.6 mg/dL (0.6-1.2) 07/28/20 04:28 Estimated GFR (MDRD) 167 (>89) 07/28/20 04:28 Glucose 125 mg/dL (70-100) H 07/28/20 04:28 POC Whole Bld Glucose 114 mg/dL (70 - 100) H 07/28/20 07:49 Estimat Average Glucose 131 mg/dL (70-100) H 07/26/20 04:40 Hemoglobin A1c % 6.2 % (4.27-6.07) H 07/26/20 04:40 Calcium 8.0 mg/dL (8.5-10.3) L 07/28/20 04:28 Iron 24 ug/dL (45-182) L 07/27/20 14:32 TIBC 150 ug/dL (250-450) L 07/27/20 14:32 % Saturation 16 % (20-50) L 07/27/20 14:32 Transferrin 107 mg/dL (180-329) L 07/27/20 14:32 Ferritin 294.3 ng/mL (23.9-336.2) 07/27/20 14:32 Total Bilirubin 0.7 mg/dL (0.2-1.0) 07/28/20 04:28 AST 36 IU/L (10-42) 07/28/20 04:28 ALT 101 IU/L (10-60) H 07/28/20 04:28 Alkaline Phosphatase 96 IU/L (42-121) 07/28/20 04:28 Lactate Dehydrogenase 101 IU/L (91-225) 07/27/20 14:32 C-Reactive Protein 4.0 mg/dL (0-1.0) H 07/28/20 04:28 Total Protein 6.1 g/dL (6.7-8.2) L 07/28/20 04:28 Albumin 2.6 g/dL (3.2-5.5) L 07/28/20 04:28 Globulin 3.5 g/dL (2.1-4.2) 07/28/20 04:28 Albumin/Globulin Ratio 0.7 (1.0-2.2) L 07/28/20 04:28 Lipase 23 U/L (22-51) 07/24/20 14:45 Vitamin B12 1485 pg/mL (180-914) H 07/27/20 14:32 ABX Reporting Has patient been on IV antibiotics over the past 48 hours?: No Current Medications - Current Medications Current Medications: Active Medications Acetaminophen (Acetaminophen 325 Mg Tablet) 650 mg PO Q4HR PRN PRN Reason: Pain 1 to 4 Last Admin: 07/27/20 08:39 Dose: 650 mg Documented by: Ferrous Gluconate (Ferrous Gluconate 324 Mg Tablet) 324 mg PO DAILYWM [facility] Last Admin: 07/28/20 07:57 Dose: 324 mg Documented by: Lactated Ringer's (Lr) 1,000 mls @ 100 mls/hr IV .Q10H [facility] Last Admin: 07/28/20 04:26 Dose: 100 mls/hr Documented by: Insulin Aspart (Insulin Aspart 300 Unit/3 Ml Pen) 2 - 10 unit SUBQ 0800,1200,1700,2100 [facility]; Protocol Last Admin: 07/28/20 07:58 Dose: Not Given Documented by: Methylprednisolone (Methylprednisolone Succinate 40 Mg/Ml Vial) 40 mg IVP TID [facility] Last Admin: 07/28/20 06:57 Dose: 40 mg Documented by: Multivitamins/Minerals (Multivitamin W/Minerals Tablet) 1 tab PO DAILYWM [facility] Last Admin: 07/28/20 07:57 Dose: 1 tab Documented by: Ondansetron HCl (Ondansetron Odt 4 Mg Tablet) 4 mg TL Q6HR PRN PRN Reason: Nausea / Vomiting Ondansetron HCl (Ondansetron 4 Mg/2 Ml Vial) 4 mg IVP Q6HR PRN PRN Reason: Nausea / Vomiting Last Admin: 07/25/20 17:10 Dose: 4 mg Documented by: Oxycodone HCl (Oxycodone 5 Mg Tablet) 5 mg PO Q4HR PRN PRN Reason: Pain 5 to 7 Last Admin: 07/28/20 04:26 Dose: 5 mg Documented by: Sodium Chloride (Sodium Chloride Flush 0.9% 10 Ml Syringe) 10 ml IVP PRN PRN PRN Reason: NEEDED PER PROVIDER ORDERS Last Admin: 07/27/20 14:26 Dose: 10 ml Documented by: Sodium Chloride (Sodium Chloride Flush 0.9% 10 Ml Syringe) 10 ml IVP 0100,0900,1700 [facility] Last Admin: 07/28/20 07:58 Dose: Not Given Documented by: Ondansetron Odt [Zofran Odt] 4 mg TL Q6H PRN 07/24/20
[2020-07-28] MEDS ORDERED: TUBERCULIN 5 TUB UNIT/0.1 ML 1 ML MDV ID ONE ×2 (18:00→20:00)
[2020-07-29] MEDS: oxyCODONE 5 MG TABLET PO PRN ×2 (02:16→14:50)
[2020-07-29 05:16] LABS: BASOPHILS % (AUTO) 0.5 %; HGB - HEMOGLOBIN 10.2 g/dL (14.0-18.0); LYMPHOCYTES % (AUTO) 8.1 %; MEAN CORPUSCULAR HEMOGLOBIN 27.7 pg (27.0-31.0); MEAN CORPUSCULAR HGB CONC 31.6 g/dL (32.0-36.0); MEAN CORPUSCULAR VOLUME 87.8 fL (80.0-94.0); MEAN PLATELET VOLUME 10.1 fL (7.4-11.4); MONOCYTES % (AUTO) 7.9 %; NEUTROPHILS % (AUTO) 82.5 %; PLT - PLATELET COUNT 358 10^3/uL (130-450); RED BLOOD COUNT 3.68 10^6/uL (4.70-6.10); RED CELL DISTRIBUTION WIDTH 15.3 % (12.0-15.0); WHITE BLOOD COUNT 10.9 x10^3/uL (4.8-10.8)
[2020-07-29 05:32] LABS: ABNORMAL LYMPHS % (MANUAL) 0 %
[2020-07-29 05:34] LABS: ALBUMIN 2.5 g/dL (3.2-5.5); ALBUMIN/GLOBULIN RATIO 0.7 (1.0-2.2); BILIRUBIN,TOTAL 0.8 mg/dL (0.2-1.0); CALCIUM 8.2 mg/dL (8.5-10.3); CREATININE 0.6 mg/dL (0.6-1.2); CRP - C-REACTIVE PROTEIN 6.9 mg/dL (0-1.0); TOTAL PROTEIN 6.3 g/dL (6.7-8.2)
[2020-07-29] MEDS: methylPREDNISolone SUCCINATE 40 MG/ML VIAL IVP SCH ×3 (06:15→22:05)
[2020-07-29 06:21] LABS: BAND NEUTROPHILS % (MANUAL) 24 %; DIFFERENTIAL COMMENT MANUAL DIFFERENTIAL; LYMPHOCYTES # (MANUAL) 1.2 10^3/uL (1.5-3.5); LYMPHOCYTES % (MANUAL) 11 %; MONOCYTES # (MANUAL) 0.1 10^3/uL (0.0-1.0); PLATELET ESTIMATE, MANUAL NORMAL (130-450,000) (NORMAL); RBC MORPHOLOGY (MULTIPLE) NORMAL APPEARANCE (NORMAL)
[2020-07-29] MEDS: MULTIVITAMIN W/MINERALS TABLET PO SCH (08:06)
[2020-07-29] MEDS: FERROUS GLUCONATE 324 MG TABLET PO SCH (08:06)
[2020-07-29] MEDS: SODIUM CHLORIDE FLUSH 0.9% 10 ML SYRINGE IVP SCH ×2 (08:07→17:47)
[2020-07-29] MEDS: INSULIN ASPART 300 UNIT/3 ML PEN SUBQ SCH ×4 (08:07→21:21)
[2020-07-29] MEDS: LACTATED RINGERS 1,000 ML IV SCH ×2 (11:01→21:21)
--- NOTE | 2020-07-29 12:06 | PROVIDER PROGRESS NOTE ---
Subjective - Prog Note Date Prog Note Date: 07/29/20 - Subjective Pt reports feeling: Improved Subjective: I, pt had a meeting with pt's GI doctor in [place] Dr. Hoover about pt's care plan. can review pt's progress in her computer system, she saw pt's progress, HGB rise, diarrhea reduced, she agree we treat with pt IV of steroid, suggest PO steroid like Prednisone 40 mg d/c to home, followup with her office, she likely will start with immunosuppresive meds like remicade for pt, and she ask me to check pt's TB and hepatitis panel in the hospital. pt report he feel significant better today, abdominal pain is better control, stool became more solid, and bloody reduced in stool. Current Medications - Current Medications Current Medications: Active Medications Acetaminophen (Acetaminophen 325 Mg Tablet) 650 mg PO Q4HR PRN PRN Reason: Pain 1 to 4 Last Admin: 07/27/20 08:39 Dose: 650 mg Documented by: Ferrous Gluconate (Ferrous Gluconate 324 Mg Tablet) 324 mg PO DAILYWM [facility] Last Admin: 07/29/20 08:06 Dose: 324 mg Documented by: Lactated Ringer's (Lr) 1,000 mls @ 100 mls/hr IV .Q10H [facility] Last Admin: 07/29/20 11:01 Dose: 100 mls/hr Documented by: Insulin Aspart (Insulin Aspart 300 Unit/3 Ml Pen) 2 - 10 unit SUBQ 0800,1200,1700,2100 [facility]; Protocol Last Admin: 07/29/20 11:27 Dose: Not Given Documented by: Methylprednisolone (Methylprednisolone Succinate 40 Mg/Ml Vial) 40 mg IVP TID [facility] Last Admin: 07/29/20 06:15 Dose: 40 mg Documented by: Multivitamins/Minerals (Multivitamin W/Minerals Tablet) 1 tab PO DAILYWM [facility] Last Admin: 07/29/20 08:06 Dose: 1 tab Documented by: Ondansetron HCl (Ondansetron Odt 4 Mg Tablet) 4 mg TL Q6HR PRN PRN Reason: Nausea / Vomiting Ondansetron HCl (Ondansetron 4 Mg/2 Ml Vial) 4 mg IVP Q6HR PRN PRN Reason: Nausea / Vomiting Last Admin: 07/25/20 17:10 Dose: 4 mg Documented by: Oxycodone HCl (Oxycodone 5 Mg Tablet) 5 mg PO Q4HR PRN PRN Reason: Pain 5 to 7 Last Admin: 07/29/20 02:16 Dose: 5 mg Documented by: Sodium Chloride (Sodium Chloride Flush 0.9% 10 Ml Syringe) 10 ml IVP PRN PRN PRN Reason: NEEDED PER PROVIDER ORDERS Last Admin: 07/27/20 14:26 Dose: 10 ml Documented by: Sodium Chloride (Sodium Chloride Flush 0.9% 10 Ml Syringe) 10 ml IVP 0100,0900,1700 [facility] Last Admin: 07/29/20 08:07 Dose: Not Given Documented by: Ondansetron Odt [Zofran Odt] 4 mg TL Q6H PRN 07/24/20 Objective - Vital Signs/Intake & Output Vital Signs: Vital Signs x48h Temp Pulse Resp BP Pulse Ox 07/29/20 08:00 36.9 C 60 16 120/78 97 Intake & Output: Intake & Output 07/26/20 07/27/20 07/28/20 07/29/20 23:59 23:59 23:59 23:59 Intake Total 3901.667 4844.833 3583.332 1240 Balance 3901.667 4844.833 3583.332 1240 - Objective General Appearance: positive: No acute distress, Alert. negative: Lethargic Eyes Bilateral: positive: Normal inspection, PERRL, No lid inflammation ENT: positive: ENT inspection nml, No signs of dehydration. negative: Purulent nasal drainage Neck: positive: Nml inspection, Trachea midline. negative: Thyromegaly, Tracheal deviation Respiratory: positive: Chest non-tender, No respiratory distress, Breath sounds nml. negative: Wheezes, Rales, Rhonchi Cardiovascular: positive: Regular rate & rhythm, No murmur. negative: Tachyca rdia, Bradycardia, Systolic murmur, Diastolic murmur Peripheral Pulses: 2+ Radial (R), 2+ Radial (L) Abdomen: positive: Non-tender, Nml bowel sounds, No distention. negative: Tenderness Back: positive: Nml inspection Skin: positive: Color nml, No rash, Warm, Dry. negative: Cyanosis, Pallor Extremities: positive: Non-tender, Full ROM, Nml appearance. negative: Calf tenderness Neurologic/Psychiatric: positive: Oriented x3, Motor nml, Sensation nml, Mood/affect nml. negative: Weakness, Sensory loss, Facial droop, Slurred/abnml speech, Depressed mood/affect - Lab Results Fish Bones: 07/29/20 04:05 07/29/20 04:05 Other Labs: Lab Results x24hrs 07/29/20 07/29/20 07/29/20 Range/Units 11:24 07:51 04:05 WBC (4.8-10.8) x10^3/uL RBC (4.70-6.10) 10^6/uL Hgb (14.0-18.0) g/dL Hct (42.0-52.0) % MCV (80.0-94.0) fL MCH (27.0-31.0) pg MCHC (32.0-36.0) g/dL RDW (12.0-15.0) % Plt Count (130-450) 10^3/uL MPV (7.4-11.4) fL Neut # (Auto) Lymph # (Auto) [place] # (Auto) Eos # (Auto) Baso # (Auto) Absolute Nucleated RBC Total Counted Band Neuts % (Manual) (0 - 10) % Abnorm Lymph % (Manual) % Nucleated RBC % Neutrophils # (Manual) (1.5-6.6) 10^3/uL Lymphocytes # (Manual) (1.5-3.5) 10^3/uL Monocytes # (Manual) (0.0-1.0) 10^3/uL Eosinophils # (Manual) (0-0.7) 10^3/uL Basophils # (Manual) (0-0.1) 10^3/uL Differential Comment Platelet Estimate (NORMAL) RBC Morph Micro Appear (NORMAL) Sodium 134 L (135-145) mmol/L Potassium 4.6 (3.5-5.0) mmol/L Chloride 99 L (101-111) mmol/L Carbon Dioxide 26 (21-32) mmol/L Anion Gap 9.0 (6-13) BUN 9 (6-20) mg/dL Creatinine 0.6 (0.6-1.2) mg/dL Estimated GFR (MDRD) 167 (>89) Glucose 127 H (70-100) mg/dL POC Whole Bld Glucose 123 H 118 H (70 - 100) mg/dL Calcium 8.2 L (8.5-10.3) mg/dL Total Bilirubin 0.8 (0.2-1.0) mg/dL AST 52 H (10-42) IU/L ALT 105 H (10-60) IU/L Alkaline Phosphatase 103 (42-121) IU/L C-Reactive Protein 6.9 H (0-1.0) mg/dL Total Protein 6.3 L (6.7-8.2) g/dL Albumin 2.5 L (3.2-5.5) g/dL Globulin 3.8 (2.1-4.2) g/dL Albumin/Globulin Ratio 0.7 L (1.0-2.2) 07/29/20 07/28/20 07/28/20 Range/Units 04:05 20:55 16:29 WBC 10.9 H (4.8-10.8) x10^3/uL RBC 3.68 L (4.70-6.10) 10^6/uL Hgb 10.2 L (14.0-18.0) g/dL Hct 32.3 L (42.0-52.0) % MCV 87.8 (80.0-94.0) fL MCH 27.7 (27.0-31.0) pg MCHC 31.6 L (32.0-36.0) g/dL RDW 15.3 H (12.0-15.0) % Plt Count 358 (130-450) 10^3/uL MPV 10.1 (7.4-11.4) fL Neut # (Auto) Not Reportable Lymph # (Auto) Not Reportable [place] # (Auto) Not Reportable Eos # (Auto) Not Reportable Baso # (Auto) Not Reportable Absolute Nucleated RBC Not Reportable Total Counted 100 Band Neuts % (Manual) 24 H (0 - 10) % Abnorm Lymph % (Manual) 0 % Nucleated RBC % Not Reportable Neutrophils # (Manual) 9.6 H (1.5-6.6) 10^3/uL Lymphocytes # (Manual) 1.2 L (1.5-3.5) 10^3/uL Monocytes # (Manual) 0.1 (0.0-1.0) 10^3/uL Eosinophils # (Manual) 0.0 (0-0.7) 10^3/uL Basophils # (Manual) 0.0 (0-0.1) 10^3/uL Differential Comment MANUAL DIFFERENTIAL Platelet Estimate NORMAL (130-450,000) (NORMAL) RBC Morph Micro Appear NORMAL APPEARANCE (NORMAL) Sodium (135-145) mmol/L Potassium (3.5-5.0) mmol/L Chloride (101-111) mmol/L Carbon Dioxide (21-32) mmol/L Anion Gap (6-13) BUN (6-20) mg/dL Creatinine (0.6-1.2) mg/dL Estimated GFR (MDRD) (>89) Glucose (70-100) mg/dL POC Whole Bld Glucose 120 H 110 H (70 - 100) mg/dL Calcium (8.5-10.3) mg/dL Total Bilirubin (0.2-1.0) mg/dL AST (10-42) IU/L ALT (10-60) IU/L Alkaline Phosphatase (42-121) IU/L C-Reactive Protein (0-1.0) mg/dL Total Protein (6.7-8.2) g/dL Albumin (3.2-5.5) g/dL Globulin (2.1-4.2) g/dL Albumin/Globulin Ratio (1.0-2.2) ABX Reporting Has patient been on IV antibiotics over the past 48 hours?: No Assessment/Plan - Problem List (1) Exacerbation of Crohn's disease Impression: 115, Patient feels much better today, patient report his diarrhea reduced in times, and stool became more solid and bleeding in stool is reduced. We discussed the care plan with the patient GI doctor in tele. Continue intravenous steroid, Continue laboratory aide. 07/28, Improved. Patient reported he had 3 time bloody diarrhea on yesterday evening, Reduced from before yesterday 7 times. He also reported his abdominal pain is better. Patient hemoglobin significantly go up today his hemoglobin is 10.9 from yesterday 9.5. Patient's CRP continue trended down, today CRP is 4.0. We will continue intravenous Solu-Medrol. Today patient had telehealth telephone appointment with his GI on this afternoon 4 PM, I Will go with the patient to talk with his GI for care plan. 1/13 Patient reported he feel abdominal pain is slightly better and he reported his diarrhea Times are reduced but Still with bloody diarrhea. Patient's CRP is significantly reduced. patient still had elevated WBC but patient is taking steroid now. Patient reported he had telephone appointment with his GI doctor on tomorrow, I discussed with the patient, I would like to join the meeting during his meeting with his GI doctor and discussed the care plan with his GI specialty. pt agreed the plan. Continue intravenous Solu-Medrol, Continue laboratory and vital signs monitor patient, continue intravenous IV fluids 07/26 readmission of Exacerbation of Crohn disease. Patient still complains of abdominal pain and diarrhea. But the patient reported he feel better compared with his in the admission. CRP is trended down, WBC is likely a response to the steroid treatment and slight elevated. We will already called [facility] in the before, Recommended with steroid and antibody, Entyvio. Patient reported he had antibody Entyvio infusion after he was d/c from hospital, infused and referral by his PCP per his insurance which have two weeks effect, then he will have another infusion followup with every two months. Because the patient had an acute flare of Crohn's disease, we will continue intravenous Solu-Medrol (2) bloody diarrhea Impression: 07/29 Patient report bleeding in stool is reduced. HGB is stable. order pt for iV of iron since pt has iron deficiency, pt has Crohns flare. Continue hemoglobin check 07/28, Improved, his times of diarrhea was reduced. Patient hemoglobin rise significantly, Today HGB is 10.9, yesterday HGB is 9.5 Patient reported he still has mild bleeding diarrhea, C. difficile was negative in the before. We will continue treat Crohn's disease with steroid but no antidiarreahea agent now. (3) Electrolyte disturbance resolved (4) Abnormal liver function test Impression: 07/28 Liver enzyme reduced, improved. We will continue laboratory aide, hold hepatic toxic agent. His AST/ALT values Has very slightly increased. pt had hx of biliary stent with replacement, history of jaundice, and ongoing intermittent alcohol use. Advised the patient quit alcohol drink, We will continue laboratory aide (5) Noncompliance w/medication treatment due to intermit use of medication Impression: Patient has history of medical noncompliant. The patient understands that he needs to remain compliant even when he is asymptomatic. (6)anemia 1/14, Patient anemia is likely combination of acute bleeding diarrhea with acute blood loss and chronic iron deficiency. times of diarrhea is reduced and improved, Anemia studies show patient had iron deficiency, patient is prescribed iron pill Patient had a hemoglobin 9.5, slightly reduced. Patient had bloody diarrhea, Also patient MCV is less than 90. We will do anemia study and followup. Qualifiers: Digestive disease complication type: without complication Qualified Code(s): K50.90 - Crohn's disease, unspecified, without complications
[2020-07-29] MEDS ORDERED: FERRIC GLUCONATE 125 MG in SODIUM CHLORIDE 0.9% 100ML 100 ML IV ONE (12:12)
[2020-07-29 13:22] LABS: HEPATITIS A IGM NON-REACTIVE (NON-REACTIVE); HEPATITIS B SURFACE ANTIGEN NON-REACTIVE (NON-REACTIVE); HEPATITIS C ANTIBODY NON-REACTIVE (NON-REACTIVE)
[2020-07-29] MEDS ORDERED: WITCH HAZEL/GLYCERIN 1 PAD TOP PRN (16:29)
[2020-07-29] MEDS: NYSTATIN CREAM 15 GM TUBE TOP SCH ×2 (17:47→22:05)
[2020-07-30] MEDS: SODIUM CHLORIDE FLUSH 0.9% 10 ML SYRINGE IVP SCH ×3 (00:43→16:59)
[2020-07-30 05:24] LABS: BASOPHILS % (AUTO) 0.7 %; HGB - HEMOGLOBIN 10.3 g/dL (14.0-18.0); LYMPHOCYTES % (AUTO) 6.7 %; MEAN CORPUSCULAR HEMOGLOBIN 28.5 pg (27.0-31.0); MEAN CORPUSCULAR HGB CONC 32.2 g/dL (32.0-36.0); MEAN CORPUSCULAR VOLUME 88.6 fL (80.0-94.0); MEAN PLATELET VOLUME 10.4 fL (7.4-11.4); MONOCYTES % (AUTO) 7.3 %; NEUTROPHILS % (AUTO) 84.4 %; PLT - PLATELET COUNT 354 10^3/uL (130-450); RED BLOOD COUNT 3.61 10^6/uL (4.70-6.10); RED CELL DISTRIBUTION WIDTH 15.3 % (12.0-15.0); WHITE BLOOD COUNT 10.1 x10^3/uL (4.8-10.8)
[2020-07-30 05:31] LABS: ABNORMAL LYMPHS % (MANUAL) 0 %
[2020-07-30 05:41] LABS: ALBUMIN 2.5 g/dL (3.2-5.5); ALBUMIN/GLOBULIN RATIO 0.7 (1.0-2.2); BILIRUBIN,TOTAL 0.9 mg/dL (0.2-1.0); CALCIUM 8.2 mg/dL (8.5-10.3); CREATININE 0.7 mg/dL (0.6-1.2); CRP - C-REACTIVE PROTEIN 8.4 mg/dL (0-1.0); TOTAL PROTEIN 6.1 g/dL (6.7-8.2)
[2020-07-30] MEDS: methylPREDNISolone SUCCINATE 40 MG/ML VIAL IVP SCH ×3 (06:02→21:02)
[2020-07-30] MEDS: oxyCODONE 5 MG TABLET PO PRN ×2 (06:02→22:37)
[2020-07-30 06:50] LABS: BAND NEUTROPHILS % (MANUAL) 6 %; LYMPHOCYTES # (MANUAL) 0.3 10^3/uL (1.5-3.5); LYMPHOCYTES % (MANUAL) 3 %; MONOCYTES # (MANUAL) 0.6 10^3/uL (0.0-1.0)
[2020-07-30 06:51] LABS: DIFFERENTIAL COMMENT MANUAL DIFFERENTIAL; PLATELET ESTIMATE, MANUAL NORMAL (130-450,000) (NORMAL); PLATELET MORPHOLOGY NORMAL APPEARANCE (NORMAL); RBC MORPHOLOGY (MULTIPLE) 1+ HYPOCHROMASIA (NORMAL)
[2020-07-30] MEDS: LACTATED RINGERS 1,000 ML IV SCH ×2 (06:54→16:59)
[2020-07-30] MEDS: INSULIN ASPART 300 UNIT/3 ML PEN SUBQ SCH ×4 (07:32→20:57)
[2020-07-30] MEDS: MULTIVITAMIN W/MINERALS TABLET PO SCH (07:51)
[2020-07-30] MEDS: FERROUS GLUCONATE 324 MG TABLET PO SCH (07:51)
[2020-07-30] MEDS: NYSTATIN CREAM 15 GM TUBE TOP SCH ×2 (10:30→21:02)
--- NOTE | 2020-07-30 10:51 | PROVIDER PROGRESS NOTE ---
Assessment/Plan - Problem List (1) Exacerbation of Crohn's disease Qualifiers: Digestive disease complication type: without complication Qualified Code(s): K50.90 - Crohn's disease, unspecified, without complications Assessment/Plan: Patient has been on Solu-Medrol. Will continue. He reports improvement in blood in stool. Plan is to discharge him home tomorrow with a prescription of prednisone 40 mg p.o. daily for 2 weeks The patient is to follow-up with his employee health rn Dr Hoover next week (2) Abnormal liver function test Assessment/Plan: Patient has history of alcohol abuse. He has been advised to quit drinking. We will continue to monitor liver enzymes. Patient is to follow-up with his employee health rn next week. (3) Bloody diarrhea Assessment/Plan: Secondary to Crohn's flare. Improved Patient is on IV steroids. We will switch to prednisone p.o. tomorrow. Patient is to follow-up with his employee health rn next week. (4) Noncompliance w/medication treatment due to intermit use of medication Assessment/Plan: Patient advised to be more compliant with medications. He expressed understanding. - Current Meds Current Meds: Current Medications Generic Name Dose Route Start Last Admin Trade Name Freq PRN Reason Stop Dose Admin Acetaminophen 650 mg 07/24/20 15:19 07/27/20 08:39 Acetaminophen 325 Mg Tablet PO 650 mg Q4HR PRN Administration Pain 1 to 4 Ferrous Gluconate 324 mg 07/27/20 16:00 07/30/20 07:51 Ferrous Gluconate 324 Mg Tablet PO 324 mg DAILYWM [facility] Administration Lactated Ringer's 1,000 mls @ 100 mls/hr 07/27/20 07:47 07/30/20 06:54 Lr IV 100 mls/hr .Q10H JOHN Administration Insulin Aspart 2 - 10 unit 07/25/20 17:00 07/30/20 07:32 Insulin Aspart 300 Unit/3 Ml Pen SUBQ Not Given 0800,1200,1700,2100 [facility] Protocol Methylprednisolone 40 mg 07/24/20 16:00 07/30/20 06:02 Methylprednisolone Succinate 40 Mg/Ml Vial IVP 40 mg TID JOHN Administration Multivitamins/Minerals 1 tab 07/25/20 16:00 07/30/20 07:51 Multivitamin W/Minerals Tablet PO 1 tab DAILYWM [facility] Administration Nystatin 1 applic 07/29/20 15:46 07/30/20 10:30 Nystatin Cream 15 Gm Tube TOP Not Given BID JOHN Ondansetron HCl 4 mg 07/24/20 15:19 07/25/20 17:10 Ondansetron 4 Mg/2 Ml Vial IVP 4 mg Q6HR PRN Administration Nausea / Vomiting Oxycodone HCl 5 mg 07/24/20 15:19 07/30/20 06:02 Oxycodone 5 Mg Tablet PO 5 mg Q4HR PRN Administration Pain 5 to 7 Sodium Chloride 10 ml 07/24/20 15:19 07/27/20 14:26 Sodium Chloride Flush 0.9% 10 Ml Syringe IVP 10 ml PRN PRN Administration NEEDED PER PROVIDER ORDERS Sodium Chloride 10 ml 07/24/20 17:00 07/30/20 10:30 Sodium Chloride Flush 0.9% 10 Ml Syringe IVP Not Given 0100,0900,1700 JOHN - Lab Result Fish Bone Diagrams: 07/31/20 04:08 07/31/20 04:08 Subjective - Subjective Patient Reports: Other (Patient appeared to be resting comfortably in bed. He reported some pain with defecation but no blood in stool.However he complained of a penile discharge. He denied burning or pain with urination. He denied being sexually active in the past 3 months. He reports being monogamous.) Objective Vital Signs: Vital Signs - 24 hr 07/29/20 07/29/20 07/30/20 16:00 23:47 07:27 Temperature 36.7 C 37.6 C 36.7 C Heart Rate [ 82 88 80 Brachial] Respiratory 18 16 16 Rate Blood Pressure 109/68 103/57 L 100/50 L [Left Brachial artery] O2 Saturation 96 98 94 Oxygen O2 Source Room air I&O (Last 24 Hrs): Intake and Output Totals x24h 07/28/20 07/29/20 07/30/20 23:59 23:59 23:59 Intake Total 3583.332 2677 955 Balance 3583.332 2677 955 General: Alert, Oriented x3, No acute distress HEENT: PERRLA, EOMI Neck: Supple, No JVD Genitourinary: Normal Inspection, No Mass, Normal Testes, No Discharge, No Meatal Blood Extremities: No clubbing, No cyanosis, No edema Comments/Notes: Fungal rash on left shoulder blade - Results Results: Laboratory Results WBC 10.1 x10^3/uL (4.8-10.8) 07/30/20 04:00 RBC 3.61 10^6/uL (4.70-6.10) L 07/30/20 04:00 Hgb 10.3 g/dL (14.0-18.0) L 07/30/20 04:00 Hct 32.0 % (42.0-52.0) L 07/30/20 04:00 MCV 88.6 fL (80.0-94.0) 07/30/20 04:00 MCH 28.5 pg (27.0-31.0) 07/30/20 04:00 MCHC 32.2 g/dL (32.0-36.0) 07/30/20 04:00 RDW 15.3 % (12.0-15.0) H 07/30/20 04:00 Plt Count 354 10^3/uL (130-450) 07/30/20 04:00 MPV 10.4 fL (7.4-11.4) 07/30/20 04:00 Reticulocyte % (Auto) 4.50 % (0.5-2.3) H 07/27/20 14:32 Neut # (Auto) Not Reportable 07/30/20 04:00 Lymph # (Auto) Not Reportable 07/30/20 04:00 [place] # (Auto) Not Reportable 07/30/20 04:00 Eos # (Auto) Not Reportable 07/30/20 04:00 Baso # (Auto) Not Reportable 07/30/20 04:00 Absolute Nucleated RBC Not Reportable 07/30/20 04:00 Total Counted 100 07/30/20 04:00 Band Neuts % (Manual) 6 % (0-10) 07/30/20 04:00 Reactive Lymphs % (Man) 4 % 07/24/20 14:45 Abnorm Lymph % (Manual) 0 % 07/30/20 04:00 Metamyelocytes % 1 % (-0) H 07/25/20 05:15 Nucleated RBC % Not Reportable 07/30/20 04:00 Neutrophils # (Manual) 9.2 10^3/uL (1.5-6.6) H 07/30/20 04:00 Lymphocytes # (Manual) 0.3 10^3/uL (1.5-3.5) L 07/30/20 04:00 Monocytes # (Manual) 0.6 10^3/uL (0.0-1.0) 07/30/20 04:00 Eosinophils # (Manual) 0.0 10^3/uL (0-0.7) 07/30/20 04:00 Basophils # (Manual) 0.0 10^3/uL (0-0.1) 07/30/20 04:00 Differential Comment MANUAL DIFFERENTIAL 07/30/20 04:00 WBC Morphology NORMAL APPEARANCE (NORMAL) 07/30/20 04:00 Platelet Estimate NORMAL (130-450,000) (NORMAL) 07/30/20 04:00 Platelet Morphology NORMAL APPEARANCE (NORMAL) 07/30/20 04:00 RBC Morph Micro Appear 1+ HYPOCHROMASIA (NORMAL) 07/30/20 04:00 Absolute Retic 0.162 10^6/uL (0.020-0.110) H 07/27/20 14:32 PT 19.3 secs (9.9-12.6) H 07/25/20 05:15 INR 1.8 (0.8-1.2) H 07/25/20 05:15 Sodium 134 mmol/L (135-145) L 07/30/20 04:00 Potassium 4.3 mmol/L (3.5-5.0) 07/30/20 04:00 Chloride 99 mmol/L (101-111) L 07/30/20 04:00 Carbon Dioxide 26 mmol/L (21-32) 07/30/20 04:00 Anion Gap 9.0 (6-13) 07/30/20 04:00 BUN 14 mg/dL (6-20) 07/30/20 04:00 Creatinine 0.7 mg/dL (0.6-1.2) 07/30/20 04:00 Estimated GFR (MDRD) 140 (>89) 07/30/20 04:00 Glucose 142 mg/dL (70-100) H 07/30/20 04:00 POC Whole Bld Glucose 118 mg/dL (70 - 100) H 07/29/20 16:54 Estimat Average Glucose 131 mg/dL (70-100) H 07/26/20 04:40 Hemoglobin A1c % 6.2 % (4.27-6.07) H 07/26/20 04:40 Calcium 8.2 mg/dL (8.5-10.3) L 07/30/20 04:00 Iron 24 ug/dL (45-182) L 07/27/20 14:32 TIBC 150 ug/dL (250-450) L 07/27/20 14:32 % Saturation 16 % (20-50) L 07/27/20 14:32 Transferrin 107 mg/dL (180-329) L 07/27/20 14:32 Ferritin 294.3 ng/mL (23.9-336.2) 07/27/20 14:32 Total Bilirubin 0.9 mg/dL (0.2-1.0) 07/30/20 04:00 AST 35 IU/L (10-42) 07/30/20 04:00 ALT 91 IU/L (10-60) H 07/30/20 04:00 Alkaline Phosphatase 103 IU/L (42-121) 07/30/20 04:00 Lactate Dehydrogenase 101 IU/L (91-225) 07/27/20 14:32 C-Reactive Protein 8.4 mg/dL (0-1.0) H 07/30/20 04:00 Total Protein 6.1 g/dL (6.7-8.2) L 07/30/20 04:00 Albumin 2.5 g/dL (3.2-5.5) L 07/30/20 04:00 Globulin 3.6 g/dL (2.1-4.2) 07/30/20 04:00 Albumin/Globulin Ratio 0.7 (1.0-2.2) L 07/30/20 04:00 Lipase 23 U/L (22-51) 07/24/20 14:45 Vitamin B12 1485 pg/mL (180-914) H 07/27/20 14:32 Hepatitis A IgM Ab NON-REACTIVE (NON-REACTIVE) 07/28/20 17:12 Hep Bs Antigen NON-REACTIVE (NON-REACTIVE) 07/28/20 17:12 Hep B Core IgM Ab NON-REACTIVE (NON-REACTIVE) 07/28/20 17:12 Hepatitis C Antibody NON-REACTIVE (NON-REACTIVE) 07/28/20 17:12 Hep C Ab Signal/Cutoff 0.00 (<1.00) 07/28/20 17:12 ABX Reporting Has patient been on IV antibiotics over the past 48 hours?: No
[2020-07-30] MEDS: ACETAMINOPHEN 325 MG TABLET PO PRN ×3 (13:07→21:06)
[2020-07-30 16:33] LABS: BILIRUBIN,URINE NEGATIVE (NEGATIVE); GLUCOSE, URINE (UA) NEGATIVE (NEGATIVE); KETONES,URINE (UA) NEGATIVE (NEGATIVE); LEUKOCYTE ESTERASE, URINE NEGATIVE (NEGATIVE); NITRITE,URINE NEGATIVE (NEGATIVE); OCCULT BLOOD,URINE NEGATIVE (NEGATIVE); PROTEIN,URINE NEGATIVE (NEGATIVE); UROBILINOGEN,URINE 1 (NORMAL) E.U./dL (NORMAL)
[2020-07-30 16:39] LABS: CLARITY,URINE CLEAR (CLEAR)
[2020-07-31] MEDS: SODIUM CHLORIDE FLUSH 0.9% 10 ML SYRINGE IVP SCH ×2 (00:23→07:50)
[2020-07-31] MEDS: LACTATED RINGERS 1,000 ML IV SCH (03:01)
[2020-07-31 05:33] LABS: BASOPHILS # (AUTO) 0.1 10^3/uL (0.0-0.1); BASOPHILS % (AUTO) 0.5 %; EOSINOPHILS % (AUTO) 0.1 %; LYMPHOCYTES # (AUTO) 1.1 10^3/uL (1.5-3.5); LYMPHOCYTES % (AUTO) 7.8 %; MEAN CORPUSCULAR HEMOGLOBIN 27.9 pg (27.0-31.0); MEAN CORPUSCULAR HGB CONC 31.2 g/dL (32.0-36.0); MEAN CORPUSCULAR VOLUME 89.4 fL (80.0-94.0); MEAN PLATELET VOLUME 10.4 fL (7.4-11.4); MONOCYTES # (AUTO) 0.9 10^3/uL (0.0-1.0); MONOCYTES % (AUTO) 6.2 %; NEUTROPHILS # (AUTO) 11.7 10^3/uL (1.5-6.6); NEUTROPHILS % (AUTO) 84.3 %; PLT - PLATELET COUNT 355 10^3/uL (130-450); RED BLOOD COUNT 3.59 10^6/uL (4.70-6.10); RED CELL DISTRIBUTION WIDTH 15.7 % (12.0-15.0); WHITE BLOOD COUNT 13.9 x10^3/uL (4.8-10.8)
[2020-07-31 05:50] LABS: ALBUMIN 2.4 g/dL (3.2-5.5); ALBUMIN/GLOBULIN RATIO 0.7 (1.0-2.2); BILIRUBIN,TOTAL 0.8 mg/dL (0.2-1.0); CALCIUM 8.4 mg/dL (8.5-10.3); CREATININE 0.6 mg/dL (0.6-1.2); CRP - C-REACTIVE PROTEIN 6.1 mg/dL (0-1.0); TOTAL PROTEIN 5.9 g/dL (6.7-8.2)
[2020-07-31] MEDS: methylPREDNISolone SUCCINATE 40 MG/ML VIAL IVP SCH (06:27)
[2020-07-31] MEDS: INSULIN ASPART 300 UNIT/3 ML PEN SUBQ SCH ×2 (07:49→11:42)
[2020-07-31] MEDS: MULTIVITAMIN W/MINERALS TABLET PO SCH (08:01)
[2020-07-31] MEDS: FERROUS GLUCONATE 324 MG TABLET PO SCH (08:01)
--- NOTE | 2020-07-31 08:16 | DISCHARGE SUMMARY ---
Discharge Summary Admit Date: 07/24/20 Discharge Date: 07/31/20 Discharging Provider: Kike Winters Code Status: Attempt Resuscitation Condition at Discharge: Stable Discharge Disposition: 01 Home, Self Care - DIAGNOSES Admission Diagnoses: Hypertension Tachycardia Dehydration Exacerbation of Crohn's disease Bloody diarrhea Discharge Diagnoses with Status of Each Condition: Exacerbation of Crohn's disease: Improved Abnormal liver function tests: Stable Bloody diarrhea: Improved/resolved Noncompliance with medication treatment due to intermittent use of medication - HPI History of Present Illness: Per HPI: This is a 24 y/o m patient with a history of Crohn disease who presented today with bloody diarrhea and abdominal pain that has been going on for the last 3 weeks. He was discharged yesterday morning after being an inpatient here for 4 days for a Crohn's exacerbation. He says that he had an episode of bloody diarrhea and dry heaves after he got to work today. He says that he felt tachycardic, lightheaded, and "like I was about to ". The blood in the diarrhea was darker than usual. He rates the intermittent, non-radiating LLQ/periumbilical pain a 6/10 at maximal intensity. There are no aggra vating/alleviating factors. He received his first infusion of Entyvio yesterday morning after being non- compliant for the last 6 months. He was diagnosed with Crohn's 2.5 years ago. - HOSPITAL COURSE Hospital Course: The frequency of the patient's bowel movement and the blood in stool improved over His 7-day stay in the hospital. On presentation CRP was 17.9. By the day of the eyes discharge CRP was 6.1 He was afebrile. He was maintained on Solu-Medrol. Upon discharge he was prescribed prednisone 40 mg p.o. daily. Patient had candidal rash on the left shoulder blade for which nystatin ointment was prescribed. On the day before discharge he complained about penile discharge. He denied any Burning with urination, blood in urination. He reports being monogamous but having not been sexually active in the past few months. Initially a urine analysis was done which was completely unremarkable. He was also tested for GC, chlamydia and syphilis. The test for GC and Chlamydia were negative. The patient is to follow-up with his superintendent pier Dr. Hoover next week He has a history of medical noncompliance. He has been advised to adhere to his medication regimen. He expressed understanding. - ALLERGIES Allergies/Adverse Reactions: Allergies Allergy/AdvReac Type Severity Reaction Status Date / Time No Known Drug Allergies Allergy Verified 08/01/20 23:45 - MEDICATIONS Home Medications: Ambulatory Orders Medication Instructions Recorded Confirmed Ondansetron Odt [Zofran Odt] 4 mg TL Q6H PRN 07/24/20 08/01/20 Prednisone 40 mg PO DAILY 14 Days tab.ds.pk 07/31/20 08/01/20 HYDROcod/ACETAM 5/325 [[place] 5/325] 1 ea PO Q6H PRN #18 tablet 08/02/20 L.acid/L.casei/B.bif/B.alba/Fos 1 each PO BID #20 capsule 08/02/20 [Probiotic Blend Capsule] Loperamide HCl [Imodium A-D] 4 mg PO Q6H PRN #30 tablet 08/02/20 Ondansetron Odt [Zofran] 4 mg TL Q6H PRN #10 tablet 08/02/20 metroNIDAZOLE [Flagyl] 500 mg PO BID #14 tablet 08/02/20 - PHYSICAL EXAM AT DISCHARGE General Appearance: positive: No acute distress, Alert Eyes Bilateral: positive: PERRL, EOMI ENT: positive: ENT inspection nml, No signs of dehydration Neck: positive: No JVD, Trachea midline Respiratory: positive: Chest non-tender, No respiratory distress, Breath sounds nml. negative: Wheezes, Rales, Rhonchi Cardiovascular: positive: No murmur, No gallop Abdomen: positive: No organomegaly, Nml bowel sounds, No distention, Tenderness (Mild). negative: Guarding, Rebound Back: positive: Nml inspection Skin: positive: Color nml, Warm, Dry, Other (candidal rash over left shoulder blade) Extremities: positive: Non-tender, Full ROM, Nml appearance Neurologic/Psychiatric: positive: Oriented x3, Mood/affect nml - LABS Result Diagrams: 07/31/20 04:08 07/31/20 04:08 - TIME SPENT Time Spent in Discharge (Minutes): 25
--- NOTE | 2020-07-31 08:23 | Discharge Plan ---
Discharge Plan Problem Reviewed?: Yes Disposition: 01 Home, Self Care Condition: Stable Prescriptions: Prednisone 40 mg PO DAILY 14 Days tab.ds.pk Diet: Regular Activity Restrictions: No Restrictions Shower Restrictions: No Driving Restrictions: No Instruction Topics: Crohn Disease, IBS, IBS Diet Lifestyle, Colitis Ulcerative Dc, Disease Crohn Lifestyle Manage, ED Colitis Ulcerative Health Concerns: You were admitted for a Crohn's flare. At the time of presentation you complaint of bloody diarrhea and abdominal pain which has been going on for 3 weeks. Over the past 7 days you have been treated with Solu-Medrol 40 mg IV 3 times daily. Your symptoms have improved considerably. You no longer have bloody diarrhea. You reports some mild discomfort with bowel movements. You are being discharged home with prednisone 40 mg p.o. daily. A 2-week worth has been ordereA potential factor of being on steroids is that you may have high blood sugars. You have a follow-up with your primary care physician for monitoring of your blood sugars and managing accordingly. You had a TB test done in anticipation of starting an immunomodulator by your transmission engineer. Your TB test was negative. You are expected to follow-up with your transmission engineer Dr. Hoover next week You were also found to have a rash on your back which was consistent with a fungal infection. You were prescribed nystatin cream to apply to the area twice a day. You had complained of a penile discharge. Urine analysis was completely n egative. Lab work has been ordered to rule out Sexually transmitted diseases. If anything significant is found you will be contacted for further treatment. Plan of Treatment: You were admitted for a Crohn's flare. At the time of presentation you complaint of bloody diarrhea and abdominal pain which has been going on for 3 weeks. Over the past 7 days you have been treated with Solu-Medrol 40 mg IV 3 times daily. Your symptoms have improved considerably. You no longer have bloody diarrhea. You reports some mild discomfort with bowel movements. You are being discharged home with prednisone 40 mg p.o. daily. A 2-week worth has been ordereA potential factor of being on steroids is that you may have high blood sugars. You have a follow-up with your primary care physician for monitoring of your blood sugars and managing accordingly. You had a TB test done in anticipation of starting an immunomodulator by your transmission engineer. Your TB test was negative. You are expected to follow-up with your transmission engineer Dr. Hoover next week You were also found to have a rash on your back which was consistent with a fungal infection. You were prescribed nystatin cream to apply to the area twice a day. You had complained of a penile discharge. Urine analysis was completely negative. Lab work has been ordered to rule out Sexually transmitted diseases. If anything significant is found you will be contacted for further treatment. Care Goals: You were admitted for a Crohn's flare. At the time of presentation you complaint of bloody diarrhea and abdominal pain which has been going on for 3 weeks. Over the past 7 days you have been treated with Solu-Medrol 40 mg IV 3 times daily. Your symptoms have improved considerably. You no longer have bloody diarrhea. You reports some mild discomfort with bowel movements. You are being discharged home with prednisone 40 mg p.o. daily. A 2-week worth has been ordereA potential factor of being on steroids is that you may have high blood sugars. You have a follow-up with your primary care physician for monitoring of your blood sugars and managing accordingly. You had a TB test done in anticipation of starting an immunomodulator by your transmission engineer. Your TB test was negative. You are expected to follow-up with your transmission engineer Dr. Hoover next week You were also found to have a rash on your back which was consistent with a fungal infection. You were prescribed nystatin cream to apply to the area twice a day. You had complained of a penile discharge. Urine analysis was completely negative. Lab work has been ordered to rule out Sexually transmitted diseases. If anything significant is found you will be contacted for further treatment. No Smoking: If you smoke, Please STOP! Call for help.
[2020-07-31] MEDS: NYSTATIN CREAM 15 GM TUBE TOP SCH (08:50)
[2020-07-31 12:28] VITALS: BP 121/77
== END 2020-07-31 12:59 | disposition home or self-care (01) | DRG 386 ==
LOC: ED 09:57 → MS2 15:19
PROVIDERS: ADMIT Specialist; ATTEND Internal Medicine
DX: K50.90 Crohn's disease, unspecified, without complications (principal); D62 Acute posthemorrhagic anemia; D50.9 Iron deficiency anemia, unspecified; E86.0 Dehydration; B37.2 Candidiasis of skin and nail; F10.10 Alcohol abuse, uncomplicated; R36.9 Urethral discharge, unspecified; F17.290 Nicotine dependence, other tobacco product, uncomplicated; R74.01 Elevation of levels of liver transaminase levels; T45.1X6A Underdosing of antineoplastic and immunosuppressive drugs, initial encounter; Z91.128 Patient's intentional underdosing of medication regimen for other reason
CPT/HCPCS: 36415; 80053; 80074; 81003; 82607; 82728; 83036; 83540; 83615; 83690; 84466; 85025; 85045; 85610; 86140; 86780; 87491; 87591; 96360; 96361; 99285; A9270; J2916; J7120; 81001; 87661

== ENCOUNTER 2020-08-01 23:03 | Outpatient (CLI) | payer OTHER | END 2020-08-01 23:04 | disposition critical access hospital (66) | LOC: EMS 23:03 | PROVIDERS: ATTEND Surgery | DX: R55 Syncope and collapse (principal); M54.2 Cervicalgia | CPT/HCPCS: A0425; A0427 ==

== ENCOUNTER 2020-08-01 23:31 | Emergency (ER) | payer OTHER ==
[2020-08-01] MEDS ORDERED: HYDROmorphone 1 MG/ML CARPUJECT IVP STA (23:44)
[2020-08-01] MEDS ORDERED: KETOROLAC 15 MG/ML VIAL IVP STA (23:44)
[2020-08-01] MEDS ORDERED: ONDANSETRON 4 MG/2 ML VIAL IVP STA (23:44)
[2020-08-01] MEDS ORDERED: SODIUM CHLORIDE 0.9% 1,000 ML IV STA (23:44)
[2020-08-01] MEDS ORDERED: DIPHENOX/ATROPINE 2.5/0.025 MG TABLET PO STA (23:45)
--- NOTE | 2020-08-01 23:46 | ED Physician Documentation ---
PD HPI ABD PAIN - Stated complaint Stated Complaint: SYNCOPE,GLF, HEAD AND NECK PAIN - History obtained from History obtained from: Patient, EMS (report of abd cramps, recurrent bouts diarrhea, and the syncopal episode this evening.) - History of Present Illness Timing - onset: How many weeks ago (3) Timing - duration: Weeks (3) Timing - details: Still present, Waxing and waning (has improved with treatment and during hospitalization, but then worsens again.) Quality: Cramping, Aching, Pain Location: Other (lower abd mainly.) Radiation: No: Chest, Lower back Worsened by: Eating Associated symptoms: Nausea, Diarrhea. No: Fever, Vomiting, Constipation, Hematochezia Similar symptoms before: Diagnosis (crohns disease) Recently seen: Emergency Dept, Admitted (has been admitted twice in the past month with improvement during admission with steroids and fluids and Antivio. Discharged with Prednisone and Zofran. Most recent discharge was just a day ago.) Review of Systems Constitutional: reports: Myalgias, Fatigue. denies: Fever, Chills Nose: denies: Rhinorrhea / runny nose, Congestion Throat: denies: Sore throat Cardiac: denies: Chest pain / pressure Respiratory: denies: Cough GI: reports: Abdominal Pain, Nausea, Diarrhea. denies: Vomiting, Bloody / black stool : denies: Dysuria, Frequency Skin: denies: Rash Musculoskeletal: reports: Neck pain (since the syncope.) Neurologic: reports: Generalized weakness, Syncope (this evening, when got up to go to the bathroom for recurrent bouts diarrhea today, got lightheaded and fainted. He remembers having "white out" vision and then starting to fall. Struck head/neck on sink. 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 : None HEENT: None Psych: None Musculoskeletal: None Derm: None - Past Surgical History Past Surgical History: Yes General: Appendectomy - Present Medications Home Medications: Ambulatory Orders Medication Instructions Recorded Confirmed Ondansetron Odt [Zofran Odt] 4 mg TL Q6H PRN 07/24/20 08/01/20 Prednisone 40 mg PO DAILY 14 Days tab.ds.pk 07/31/20 08/01/20 HYDROcod/ACETAM 5/325 [[place] 5/325] 1 ea PO Q6H PRN #18 tablet 08/02/20 L.acid/L.casei/B.bif/B.alba/Fos 1 each PO BID #20 capsule 08/02/20 [Probiotic Blend Capsule] Loperamide HCl [Imodium A-D] 4 mg PO Q6H PRN #30 tablet 08/02/20 Ondansetron Odt [Zofran] 4 mg TL Q6H PRN #10 tablet 08/02/20 metroNIDAZOLE [Flagyl] 500 mg PO BID #14 tablet 08/02/20 - Allergies Allergies/Adverse Reactions: Allergies Allergy/AdvReac Type Severity Reaction Status Date / Time No Known Drug Allergies Allergy Verified 08/01/20 23:45 - Social History Does the pt smoke?: No Smoking Status: Former smoker Does the pt drink ETOH?: Yes Does the pt have substance abuse?: No - Immunizations Immunizations are current?: Yes - POLST Patient has POLST: No POLST Status: Full Code PD ED PE NORMAL - Vitals Vital signs reviewed: Yes - General General: Alert and oriented X 3, No acute distress (arrives in cervical collar/board. Removed from board and collar in place until imaging. ), Well developed/nourished - HEENT HEENT: Moist mucous membranes, Pharynx benign - Neck Neck: Supple, no meningeal sign, No adenopathy, Other (some tenderness midline lower neck without defromity. Head slightly tender posterior. ) - Cardiac Cardiac: RRR (tachycardic but regular. ), No murmur - Respiratory Respiratory: Clear bilaterally - Abdomen Abdomen: Soft, Non distended, No organomegaly, Other (tender without guarding in lower and left abd. No percussion nor guarding tenderness. ). No: Normal bowel sounds (increased) - Back Back: No CVA TTP - Derm Derm: Normal color, Warm and dry - Extremities Extremities: No tenderness to palpate, No edema, No calf tenderness / cord - Neuro Neuro: Alert and oriented X 3, fiscal services director 2-12 intact, No motor deficit, No sensory deficit, Normal speech Results - Vitals Vitals: Vital Signs - 24 hr 01/18/21 01/19/21 01/19/21 23:34 02:12 04:30 Temperature 36.9 C Heart Rate 114 H 87 64 Respiratory 18 16 Rate Blood Pressure 109/73 125/71 112/60 O2 Saturation 97 97 96 Oxygen O2 Source Room air - Labs Labs: Laboratory Tests 08/01/20 08/01/20 00:02 00:02 WBC 12.4 H RBC 3.93 L Hgb 11.0 L Hct 34.9 L MCV 88.8 MCH 28.0 MCHC 31.5 L RDW 16.0 H Plt Count 383 MPV 9.6 Neut # (Auto) 9.6 H Lymph # (Auto) 1.3 L [place] # (Auto) 1.3 H Eos # (Auto) 0.0 Baso # (Auto) 0.1 Absolute Nucleated RBC 0.00 Nucleated RBC % 0.0 Sodium 132 L Potassium 4.2 Chloride 95 L Carbon Dioxide 26 Anion Gap 11.0 BUN 16 Creatinine 0.9 Estimated GFR (MDRD) 105 Glucose 110 H Calcium 8.3 L Total Bilirubin 2.3 H AST 28 ALT 85 H Alkaline Phosphatase 147 H Total Protein 6.7 Albumin 2.8 L Globulin 3.9 Albumin/Globulin Ratio 0.7 L Lipase 20 L - Rads (name of study) cervical spine Radiology: Prelim report reviewed (no fractures nor acute process), See rad report PD MEDICAL DECISION MAKING - ED course Complexity details: reviewed old records (treated with steroids. No noted inhospital nor discharge Rx for probiotics, antibiotics, antidiarrheal nor pain meds. Can supplement his treatment with these. ), considered differential (No concussive symptoms per se. Neck with some tenderness post fall, so can get imaging. Recurrent diarrhea from Crohns, post recent hospitalization. ), d/w patient Departure - Departure Clinical Impression: Crohn's colitis, Postural syncope, Diarrhea Condition: Stable Record reviewed to determine appropriate education?: Yes Instructions: ED Inflam Bowel Disease Crohn Follow-Up: [facility] [Provider Group] Prescriptions: metroNIDAZOLE [Flagyl] 500 mg PO BID #14 tablet Loperamide HCl [Imodium A-D] 4 mg PO Q6H PRN #30 tablet PRN Reason: Diarrhea HYDROcod/ACETAM 5/325 [[place] 5/325] 1 ea PO Q6H PRN #18 tablet PRN Reason: Pain L.acid/L.casei/B.bif/B.alba/Fos [Probiotic Blend Capsule] 1 each PO BID #20 capsule Ondansetron Odt [Zofran] 4 mg TL Q6H PRN #10 tablet PRN Reason: Nausea / Vomiting Comments: Small frequent fluids and food as tolerated. Continue the ondansetron (Zofran) as needed for nausea. Use Tylenol or hydrocodone as needed for pain and cramps. Continue the prednisone as previously prescribed. Add to that probiotic bland and also metronidazole antibiotic for potential infectious as well as inflammatory processes with the Crohn's flare. Recheck if not improved well over the next few days. Forms: Activity restrictions
[2020-08-02 00:19] LABS: BASOPHILS # (AUTO) 0.1 10^3/uL (0.0-0.1); BASOPHILS % (AUTO) 0.6 %; EOSINOPHILS % (AUTO) 0.1 %; LYMPHOCYTES # (AUTO) 1.3 10^3/uL (1.5-3.5); LYMPHOCYTES % (AUTO) 10.3 %; MEAN CORPUSCULAR HGB CONC 31.5 g/dL (32.0-36.0); MEAN CORPUSCULAR VOLUME 88.8 fL (80.0-94.0); MEAN PLATELET VOLUME 9.6 fL (7.4-11.4); MONOCYTES # (AUTO) 1.3 10^3/uL (0.0-1.0); MONOCYTES % (AUTO) 10.2 %; NEUTROPHILS # (AUTO) 9.6 10^3/uL (1.5-6.6); NEUTROPHILS % (AUTO) 77.8 %; PLT - PLATELET COUNT 383 10^3/uL (130-450); RED BLOOD COUNT 3.93 10^6/uL (4.70-6.10); WHITE BLOOD COUNT 12.4 x10^3/uL (4.8-10.8)
[2020-08-02 00:33] LABS: ALBUMIN 2.8 g/dL (3.2-5.5); ALBUMIN/GLOBULIN RATIO 0.7 (1.0-2.2); BILIRUBIN,TOTAL 2.3 mg/dL (0.2-1.0); CALCIUM 8.3 mg/dL (8.5-10.3); CREATININE 0.9 mg/dL (0.6-1.2); TOTAL PROTEIN 6.7 g/dL (6.7-8.2)
[2020-08-02] MEDS ORDERED: DEXAMETHASONE 10 MG/ML VIAL IVP STA (01:28)
[2020-08-02] MEDS ORDERED: SODIUM CHLORIDE 0.9% 1,000 ML IV STA (01:28)
[2020-08-02] MEDS ORDERED: metroNIDAZOLE 500 MG/100 ML 500 MG/100 ML BAG IV ONE (02:36)
[2020-08-02 06:26] VITALS: BP 105/74
--- NOTE | 2020-08-02 09:01 | CT Report ---
PROCEDURE: CERVICAL SPINE WO INDICATIONS: fall/syncope with neck pain TECHNIQUE: Noncontrast 3 mm thick sections acquired from the skull base to the T4 level. Sagittal and coronal r eformats were then constructed. For radiation dose reduction, the following was used: automated exp osure control, adjustment of mA and/or kV according to patient size. COMPARISON: None. FINDINGS: Image quality: Excellent. Bones: No fractures or dislocations. Visualized superior ribs are intact. Soft tissues: Prevertebral soft tissues are normal in thickness. No paravertebral hematomas. No ap ical pneumothoraces. IMPRESSION: No acute cervical spine fracture or dislocation. No discrepancies from pulmonary reading. Reviewed by: Jake Jimenez MD on 08/02/2020 9:00 AM PST Approved by: Jake Jimenez MD on 08/02/2020 9:00 AM PST Station ID: [id number]
== END 2020-08-02 09:33 | disposition home or self-care (01) ==
LOC: EDUNIT# → ED 23:31
DX: K50.10 Crohn's disease of large intestine without complications (principal); R55 Syncope and collapse; M54.2 Cervicalgia; W18.30XA Fall on same level, unspecified, initial encounter; Y93.01 Activity, walking, marching and hiking; Y92.002 Bathroom of unspecified non-institutional (private) residence as the place of occurrence of the external cause; Z87.891 Personal history of nicotine dependence
CPT/HCPCS: 36415; 72125; 80053; 83690; 85025; 96361; 96365; 96375; 99284; 99285; A9270; J1170

== ENCOUNTER 2020-08-09 17:02 | Emergency (ER) | payer OTHER ==
[2020-08-09] MEDS ORDERED: POTASSIUM CHLOR 10 MEQ/100 ML 10 MEQ/100 ML BAG IV ONE (17:43)
[2020-08-09] MEDS ORDERED: POTASSIUM CHLORIDE 20 MEQ TABLET PO STA (17:43)
[2020-08-09] MEDS ORDERED: POTASSIUM CHLOR 10 MEQ/100 ML 10 MEQ/100 ML BAG IV STA (17:43)
[2020-08-09] MEDS ORDERED: SODIUM CHLORIDE 0.9% 1,000 ML IV STA (17:43)
--- NOTE | 2020-08-09 17:45 | ED Physician Documentation ---
History of Present Illness - Stated complaint Stated Complaint: ABD PX/BLOODY STOOL - Chief complaint Chief Complaint: General - History obtained from History obtained from: Patient - Additonal information Additional information: 24-year-old with history of Crohn's disease, he has been on steroids recently [place] [facility] [place]vio [place] Had labs done earlier today with notable potassium of 2.5 and was referred over for therapy evaluation and treatment. Of note magnesium was not checked. His H&H has dropped a couple grams over the last 10 days. He is having bloody diarrhea. 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 : None HEENT: None Psych: None Musculoskeletal: None Derm: None - Past Surgical History Past Surgical History: Yes General: Appendectomy - Present Medications Home Medications: Ambulatory Orders Medication Instructions Recorded Confirmed L.acid/L.casei/B.bif/B.alba/Fos 1 each PO BID #20 capsule 08/02/20 08/09/20 [Probiotic Blend Capsule] Loperamide HCl [Imodium A-D] 4 mg PO Q6H PRN #30 tablet 08/02/20 08/09/20 Ondansetron Odt [Zofran] 4 mg TL Q6H PRN #10 tablet 08/02/20 08/09/20 metroNIDAZOLE [Flagyl] 500 mg PO BID #14 tablet 08/02/20 08/09/20 Potassium Chloride 20 meq PO DAILY #5 tablet.er 08/09/20 predniSONE [Deltasone] 20 mg PO [id number] #21 tab 08/09/20 - Allergies Allergies/Adverse Reactions: Allergies Allergy/AdvReac Type Severity Reaction Status Date / Time No Known Drug Allergies Allergy Verified 08/09/20 17:15 - Social History Does the pt smoke?: No Smoking Status: Never smoker Does the pt drink ETOH?: Yes Does the pt have substance abuse?: No - Immunizations Immunizations are current?: Yes - POLST Patient has POLST: No POLST Status: Full Code PD ED PE NORMAL - Vitals Vital signs reviewed: Yes - General General: Alert and oriented X 3, No acute distress - Neck Neck: Supple, no meningeal sign, No bony TTP - Cardiac Cardiac: RRR, No murmur - Respiratory Respiratory: No respiratory distress, Clear bilaterally - Abdomen Abdomen: Soft, Non tender - Back Back: No CVA TTP, No spinal TTP - Derm Derm: Normal color, Warm and dry - Extremities Extremities: No edema, No calf tenderness / cord - Neuro Neuro: Alert and oriented X 3, Normal speech Results - Vitals Vitals: Vital Signs - 24 hr 08/09/20 08/09/20 17:05 17:36 Temperature 36.5 C 37.2 C Heart Rate 113 H 104 H Respiratory 16 25 H Rate Blood Pressure 125/78 120/78 O2 Saturation 100 98 Oxygen O2 Source Room air - Labs Labs: Laboratory Tests 08/09/20 18:08 Magnesium 2.1 PD MEDICAL DECISION MAKING - ED course ED course: 24-year-old gentleman with exacerbation of Crohn's disease complicated by anemia and hypokalemia. The anemia is at a level that does not need to be emergently addressed but discussed need for close follow-up. For the hypokalemia he received 2 x 10meq K riders and some oral potassium here. Departure - Departure Disposition: 01 Home, Self Care Clinical Impression: Bloody diarrhea, Hypokalemia Exacerbation of Crohn's disease Qualifiers: Digestive disease complication type: with rectal bleeding Qualified Code(s): K50.911 - Crohn's disease, unspecified, with rectal bleeding Instructions: Hypokalemia Dc, ED Inflam Bowel Disease Crohn Prescriptions: predniSONE [Deltasone] 20 mg PO [id number] #21 tab Potassium Chloride 20 meq PO DAILY #5 tablet.er Comments: As discussed, your blood counts did drop a bit and you should probably have repeat labs done towards the end of the week. [place] Return if worsening.
[2020-08-09] MEDS ORDERED: methylPREDNISolone SUCCINATE 125 MG/2 ML VIAL IVP STA (18:46)
[2020-08-09 21:02] VITALS: BP 102/62
== END 2020-08-09 21:02 | disposition home or self-care (01) ==
LOC: ED 17:02
DX: K50.911 Crohn's disease, unspecified, with rectal bleeding (principal); D64.9 Anemia, unspecified; E87.6 Hypokalemia
CPT/HCPCS: 36415; 83735; 96365; 96366; 96375; 99283